=== PATIENT | male | born 1965 | race Caucasian/White ===

== ENCOUNTER 2021-09-30 14:02 | Emergency (ER) | payer OTHER, SELFPAY ==
--- NOTE | ~2021-09-30 | XR_ITS ---
EXAMINATION: XR ankle RT min 3V EXAM DATE: 09/30/2021 14:53 INDICATION: right ankle pain, skiing injury Lateral Pain TECHNIQUE: Right ankle frontal, lateral and oblique projections obtained and reviewed. There is no p rior study for comparison. FINDINGS: The right ankle mortise appears intact. There are no acute fractures or dislocations iden tified. There is no subcutaneous gas. The soft tissue is unremarkable. There are no radiopaque fo reign bodies. IMPRESSION: 1. XR ankle RT min 3V exam without acute osseous findings. Reviewed, dictated and finalized at location A. MASON
--- NOTE | ~2021-09-30 | CT_ITS ---
EXAMINATION: CT brain wo con, CT cervical spine wo con EXAM DATE: 09/30/2021 14:48 INDICATION: Head injury, headache, vomiting. TECHNIQUE: Spiral CT of the head was performed without contrast. Axial, coronal and sagittal images were reviewed. Spiral CT of the cervical spine was performed without contrast. Axial images were rev iewed. Coronal and sagittal reformatted images were also reviewed. The dose-length product (DLP) fo r this examination was 605.33 (accession [id number]), 302.42 (accession [id number]) mGy-cm. The exposure was tailored according to patient size, and iterative reconstruction (ASIR) was used as additional dose reduction technique. Comparison is made to prior examination from 05/03/2017. FINDINGS: HEAD CT: There is no acute intraparenchymal hemorrhage. No evidence of intraparenchymal brain mass l esion. No evidence of acute infarction. There is no mass effect or midline shift. There is no obstru ctive hydrocephalus suspected. There are no extra-axial collections. There are no acute calvarial f ractures. The orbits are unremarkable. Soft tissue is unremarkable. The visualized sinuses and mas toid air cells are well aerated. CERVICAL CT: There is no evidence of acute cervical fracture. The odontoid process is intact. Pre- dens space is normal. Prevertebral soft tissue is normal. There are no soft tissue abnormalities id entified. There is no disc space widening or traumatic vertebral body subluxation suspected. Modera te lower cervical disc disease. Mild cervical arthropathy. A detailed level by level evaluation of s pondylosis can be added as addendum if requested. IMPRESSION: 1. No acute intracranial findings or cervical fracture. Reviewed, dictated and finalized at location A. SANDER IMPRESSION: 1. No acute intracranial findings or cervical fracture.
[2021-09-30 14:15] VITALS: BP 141/88; PULSE 81; RESP 14; TEMP 36.9; O2SAT 100
[2021-09-30] MEDS: ONDANSETRON HCL ODT 4 MG TABLET PO (14:38)
[2021-09-30] MEDS: ACETAMINOPHEN 500 MG TABLET 1000 MG PO (14:38)
--- NOTE | 2021-09-30 15:08 | ED.HEATRA ---
HPI - Head Injury General Chief complaint: Head Injury <Collette Hall PA-C - Last Filed: 09/30/21 15:15> Stated complaint: fall <Collette Hall PA-C - Last Filed: 09/30/21 15:15> Time Seen by Provider: 09/30/21 14:11 <Collette Hall PA-C - Last Filed: 09/30/21 15:15> Source: patient <TWIN Logan Last Filed: 09/30/21 15:15> Mode of arrival: ambulatory <TWIN Logan Last Filed: 09/30/21 15:15> Limitations: no limitations <Collette Hall PA-C - Last Filed: 09/30/21 15:15> History of Present Illness HPI Narrative: This is a 56-year-old male that presents to the emergency department for head injury sustained 2 days ago. Reports he was skiing and lost balance. He struck his head on the ground. He was wearing his helmet. Reports since the injury he has had headaches. Reports last night he was having some vomiting as well. He reports neck pain and right ankle pain after the injury. Patient is not on a blood thinner. Denies vision changes, numbness, or weakness. <Collette Hall PA-C - Last Filed: 09/30/21 15:15> Related Data Allergies/Adverse reactions: Allergies Allergy/AdvReac Type Severity Reaction Status Date / Time No Known Allergies Allergy Verified 08/01/21 15:12 <Collette Hall PA-C - Last Filed: 09/30/21 15:15> Review of Systems Review of Systems: CONSTITUTIONAL: Denies fever EYES: Denies visual changes GASTROINTESTINAL: Reports nausea, vomiting MUSCULOSKELETAL: Reports joint pain, and myalgia. NEUROLOGIC: Reports headache. Denies numbness, or weakness. <TWIN Logan Last Filed: 09/30/21 15:15> All systems reviewed & are unremarkable except as noted in HPI and below <TWIN Logan Last Filed: 09/30/21 15:15> [facility] Past Medical History Medical History: Medical History Chronic headaches Hallux rigidus of left foot Lymphocele after surgical procedure Wears glasses <Collette Hall PA-C - Last Filed: 09/30/21 15:15> Surgical History Surgical History: Surgical History History of lymph node excision <Collette Hall PA-C - Last Filed: 09/30/21 15:15> Family History Family History: Family History Grandparent Diabetes mellitus Father Diabetes mellitus Mother Hypertension, Onset Age: 65 Family history of cardiovascular disease, Onset Age: 65 <Collette Hall PA-C - Last Filed: 09/30/21 15:15> Social History Social History: Social History Smoking status: Never smoker Alcohol intake: current Drinks per week: 2 Gender identity (if verbalized by the patient): Male <TWIN Logan Last Filed: 09/30/21 15:15> Exam Narrative: GENERAL: Well-appearing, well-nourished, and in no acute distress. HEAD: Normocephalic. Superficial abrasions to the left side of the face EYES: PERRLA and EOMI. ENT: Nares clear, no rhinorrhea or epistaxis. Mucous membranes moist. Oropharynx without tonsillar hypertrophy exudate or other lesions. Bilateral TMs pearly demarco non-bulging NECK: Supple. No adenopathy or masses. No midline cervical spine tenderness CHEST: Clear to auscultation. No respiratory distress. No wheezes rales or rhonchi HEART: Regular rate and rhythm. No murmur heard. Normal peripheral pulses. EXTREMITIES: Normal range of motion. No edema or obvious deformity. Strength equal in bilateral upper and lower extremities (5/5) SKIN: Warm, dry, no rash. NEURO: No focal deficits. Alert and oriented x3. Cranial nerves II through XII grossly intact PSYCH: Normal mood and affect <TWIN Logan Last Filed: 09/30/21 15:15> Course HALVER MACHINE OPERATOR/PA Physician Supervision For this patient encounter, I reviewed the HALVER MACHINE OPERATOR or PA documentation, treat
== END 2021-09-30 15:24 | disposition home or self-care (01) ==
PROVIDERS: Emergency Provider Emergency Medicine; PCP Family Medicine
DX: S09.90XA Unspecified injury of head, initial encounter (principal); S16.1XXA Strain of muscle, fascia and tendon at neck level, initial encounter; V00.321A Fall from snow-skis, initial encounter; Y93.23 Activity, snow (alpine) (downhill) skiing, snowboarding, sledding, tobogganing and snow tubing
CPT/HCPCS: 70450; 72125; 73610; 99284; A9270

== ENCOUNTER → 2021-12-05 15:28 | Outpatient (CLI) | payer OTHER, SELFPAY ==
--- NOTE | ~2021-12-05 | XR_ITS ---
EXAMINATION: XR hip RT 2V w AP pelvis INDICATION: Low back TECHNIQUE: AP view the pelvis and two views of the right hip are obtained. COMPARISON: None available FINDINGS: Bone alignment is normal. There is no fracture. Phleboliths are noted in the pelvis. The so ft tissues are otherwise unremarkable. IMPRESSION: 1. No acute osseous abnormality. Reviewed, dictated and finalized at location B.
--- NOTE | ~2021-12-05 | XR_ITS ---
EXAMINATION: XR lumbar spine 2-3V DATE: 12/05/2021 15:58 INDICATION: Low back pain TECHNIQUE: Anteroposterior and lateral views of the lumbar spine, and cone-down lateral view of the l umbosacral junction were obtained. COMPARISON: None. FINDINGS: There is no fracture, dislocation, or subluxation. The vertebral body heights, alignment, a nd intervertebral disc spaces are normal. The paravertebral soft tissues are unremarkable. IMPRESSION: 1. No acute osseous abnormality. Reviewed, dictated and finalized at location B.
== END ==
PROVIDERS: PCP Physician Assistant; Visit Provider Physician Assistant
DX: M54.50 Low back pain, unspecified (principal)
CPT/HCPCS: 72100; 73502

== ENCOUNTER 2022-01-03 06:39 | Outpatient (CLI) | payer OTHER, SELFPAY ==
--- NOTE | ~2022-01-03 | MR_ITS ---
EXAMINATION: MR lumbar spine wo con DATE: 01/03/2022 07:10 INDICATION: Radiculopathy, lumbar region. TECHNIQUE: Magnetic resonance imaging (MRI) of the lumbar spine was performed without intravenous con trast. Sequences included sagittal T2-weighted FSE, sagittal T2-weighted FS FSE, sagittal T1-weighted FSE, and axial T2-weighted FSE. COMPARISON: Lumbar spine radiographs 12/05/2021 FINDINGS: There is 9 degrees dextrocurvature of lumbar spine. Vertebral body heights are normal. Inte rvertebral disc heights are normal. The distal spinal cord signal intensity is normal. The conus medu llaris is at L1. The following disc levels are specifically discussed: L1-L2: The disc does not extend beyond the endplate margin. There is mild bilateral facet joint osteo arthritis. There is no neural foraminal stenosis. There is no central canal stenosis. L2-L3: The disc is mildly bulging. There is severe bilateral facet joint osteoarthritis. There is mil d bilateral neural foraminal stenosis. There is no central canal stenosis. L3-L4: The disc is mildly bulging. There is severe bilateral facet joint osteoarthritis. There is mil d bilateral neural foraminal stenosis. There is no central canal stenosis. L4-L5: The disc is bulging and has an annular fissure. There is mild bilateral facet joint osteoarthr itis. There is mild bilateral neural foraminal stenosis. There is no central canal stenosis. L5-S1: The disc is bulging with superimposed central extrusion. There is mild bilateral facet joint o steoarthritis. There is no neural foraminal stenosis. There is mild central canal stenosis. IMPRESSION: 1. Mild lumbar spondylosis. Reviewed, dictated and finalized at location B. IMPRESSION: 1. Mild lumbar spondylosis.
== END 2022-01-03 06:40 | disposition home or self-care (01) ==
LOC: ANHIMG 06:43
PROVIDERS: PCP Family Medicine; Visit Provider Physician Assistant
DX: M47.26 Other spondylosis with radiculopathy, lumbar region (principal)
CPT/HCPCS: 72148

== ENCOUNTER → 2022-09-07 09:11 | Outpatient (CLI) | payer OTHER, SELFPAY ==
--- NOTE | ~2022-09-07 | MR_ITS ---
MRI of the brain Clinical History: Memory loss Technique: Axial and sagittal T1-weighted images were acquired. These were followed by axial T2-weigh nikki, diffusion weighted, gradient, and FLAIR images. Following intravenous administration of 14 cc Mu ltiHance gadolinium, T1-weighted fat-sat imaging was performed in the axial and coronal planes. Findings: No abnormal signal seen in the brain parenchyma. No acute infarct, intracranial hemorrhage, or mass lesion. Ventricles and subarachnoid spaces are unremarkable. Orbits are unremarkable. Paranasal sinuses and m astoid air cells are clear. Major intracranial flow voids appear intact. Sagittal midline structures are intact. No abnormal postcontrast enhancement identified. IMPRESSION: Unremarkable exam. Reviewed, dictated and finalized at location M. MING POOL ATTENDANT IMPRESSION: Unremarkable exam.
== END ==
PROVIDERS: PCP Family Medicine; Visit Provider Family Medicine
DX: R41.3 Other amnesia (principal)
CPT/HCPCS: 70553; A9577

== ENCOUNTER 2022-12-13 15:30 | Outpatient (RCR) | payer OTHER, SELFPAY ==
--- NOTE | 2022-09-25 15:19 | PTOPEVAL1 ---
Assessment and note entered by Jacquie Horner, PT Evaluation Information Assessment Status Evaluation Diagnosis back pain Onset September 2021 Subjective Information skiing accident Sep 2021; head MRI and vertigo, decreased vision; MRI of back, to pain management, had lumbar injection 2x- had some pain relief; saw surgeon- was not a candidate for surgery, to have PT; back is better than initially after injury; have been active and doing exercises; Reported Pain Level Pain Score Self Report Additional Pain Score Comments pain range of 1-4/10, deep pain into R lateral hip and anterior thigh- like torn muscle to above knee, burning pain; increase pain with lifting 80#--doing home renovations;sit 1-2 hours; sleeping and walking are OK; decrease pain with exercises--bicycle and eccliptical; have not used heat or ice lately--did initially; have new home stim unit prior to accident- was running 8 miles, not done since accident- asked if he could start running- discussed bicycle, swimming, non impact exer and to avoid running at this time; reinforced position change every hour; Assessment PT Clinical Summary Kaye has the diagnosis of back pain, radicular into R LE to above knee. He reports onset in September 2021 with skiing accident. Self assessment Oswestry score of 40% limitation in activity level. Activity level with fitness activity and running, lifting and sitting tolerances are decreased. He reports generally sleeping and walking are OK, and he feels better when he does fitness activity. His MRI report states severe facet joint OA, mild lumbar bulging, with L5-S1 central extrusion. With the evaluation, he has tightness of B hamstrings and anterior hip/quad length on R, and decreased spinal mobility, with spasms. Pain is increased with standing trunk extension, supine R hip IR and ER motions and on the mat- supine SLR and side lying hip abduction cause hip pain. Skilled PT services are indicated for modalities to decrease the radicular pain and spasms, therapeutic exercises to stretch and strengthen trunk and hips, with education for home exercises and posture/body mecha
--- NOTE | 2022-10-09 15:21 | PCPTNOTE ---
Patient did not show up for scheduled appointment this date. Called and spoke to patient's and she stated that he thought his appointment wasn't until Sunday.
--- NOTE | 2022-10-23 16:16 | PTOPPROG ---
Assessment and note entered by Jacquie Horner, PT Evaluation Information Assessment Status Progress Diagnosis back pain Onset September 2021 Subjective Information Kaye reports: stretching is helping overall, but still tight; want to get back to running a 5K, has been about 1 year since ran; at home have ecliptical --using about 34 min and bike; have gym membership; pain range of 0-4/10- in anterior hip/inner groin areas; radicular into medial thigh R to above knee ; R low back and lateral hip sometimes feel there when stretching; report sitting tolerance of 1 & 1/2 to 2 hour tolerance; decrease pain with resting, ibuprofen 800 mg-usually take 1/2 tab at time--PRN, every other day; have home stim unit-- have not opened or tried it yet; Assessment PT Clinical Summary Kaye has received 7 PT sessions. Compared to the initial evaluation: pain rating at the highest remains 4/10, but low rating has decreased to times of NO pain; Oswestry self assessment improved from 40-30% limitation in activity level; reported sitting tolerance is the same; supine R hip ER and SLR and standing trunk extension no longer cause pain; increased flexibility of B hamstrings and R anterior hip/ quad; increase strength of trunk and hips; has been educated on HEP and posture/positioning. The goals were partially achieved. Continue PT treatment. Plan of Care Interventions Electrical Stimulation,Hot Pack/Cold Pack,Manual Therapy,Mechanical Traction,Neuro Re-education, Patient/Caregiver Education,Therapeutic Activities, Therapeutic Exercise,Ultrasound,Other Other Interventions taping PT Services Indicated Yes Treatment Frequency and 1x/wk for 6 weeks Duration These treatments will address the objective and functional deficits as defined above. The patient will be advanced safely and appropriately in order for the patient to progress towards his/her prior level of function. Additional exercises will be introduced and as well as a comprehensive home exercise program upon discharge, if needed, ?to ensure carryover of functional gains achieved in the clinic. This treatment plan has been reviewed and agreement upon by the patient.
--- NOTE | 2022-11-13 15:41 | PCPTNOTE ---
Patient called & cancelled scheduled appointment this date due to having a work meeting.
--- NOTE | 2022-12-04 15:27 | PCPTNOTE ---
pt called and canceled today's reeval due to having to work;
--- NOTE | 2022-12-13 16:18 | PTOPDC ---
Assessment and note entered by Jacquie Horner, PT Evaluation Information Assessment Status Discharge Diagnosis back pain Onset September 2021 Subjective Information Kaye reports: has started running again, have not run for the past year- has been out 3x- 1,2 & 4 miles; stretched out before and after running, had ankle, knee and some back pain; have been doing eccliptical and bicycle for fitness about 30 -40 minutes, without any troubles; Discussed and educated pt to gradually increase his running, monitor back and body pain; alternate bike, running and other fitness, to decrease stress on his body; he voiced understanding of this; Reported Pain Level Pain Score Self Report Additional Pain Score Comments pain range of 0-2/10 in past week; R mid lumbar and lateral hip joint; burning pain in distal anterior quad--cannot relate to any activity-- has not changed; sitting tolerance 1-2 hours; no pain in R lateral hip today, did have some tightness there in the past few weeks, pushed on muscle there and it was sore and tight; take ibuprofen as needed, but not very often; Assessment PT Clinical Summary Kaye has received 12 PT sessions. Compared to the last reevaluation: improved with: pain rating at the worst from 4 to 2/10; no pain with supine R hip motions; self assessment Oswestry from 30% to 16% limitation in activity; strength of trunk and hips; hamstring flexibility with SLR 70' R and L; he has returned to running and 30-40 minutes of bicycle for fitness. Education completed for home exercises and posture The goals were met. Discharge PT services. Plan of Care PT Services Indicated No-- discharge PT Services
== END 2022-12-14 08:43 | disposition home or self-care (01) ==
LOC: ANHPT 15:30
PROVIDERS: PCP Family Medicine; Visit Provider Physician Assistant
DX: M54.9 Dorsalgia, unspecified (principal)
CPT/HCPCS: 97014; 97110; 97112; 97140; 97161; 97530; 99199; G0283

== ENCOUNTER 2023-07-07 04:47 | Emergency (ER) | payer OTHER, SELFPAY ==
[2023-07-07] VITALS (10 sets, daily range): BP systolic 119–130; BP diastolic 70–82; PULSE 52–75; RESP 14–15; TEMP 36.4; O2SAT 100
--- NOTE | ~2023-07-07 | CT_ITS ---
EXAMINATION: CT abdomen pelvis w con DATE: 07/07/2023 06:07 INDICATION: New onset of hematuria TECHNIQUE: Computed tomography (CT) of the abdomen and pelvis was performed with 100 cc Omnipaque 350 intravenous contrast. The dose-length product was 263.33 mGy-cm. Automated exposure control and iter ative reconstruction technique were employed. COMPARISON: None. FINDINGS: Lung bases are unremarkable. Heart size normal. No significant pleural or pericardial effus ion. The liver, spleen, pancreas, adrenal glands and kidneys are unremarkable. Gallbladder is present . Nonobstructive bowel gas pattern. Moderate colonic fecal loading. No abnormal pelvic masses. No sig nificant vascular abnormality. No lymphadenopathy. Mild dextrocurvature of the splenic lumbar spine. No free air. No lymphadenopathy. IMPRESSION: 1. No acute abdominal abnormality. Reviewed, dictated and finalized at location A.
[2023-07-07 05:26] LABS: Basophils Percent Auto 0.8 % (0.2-1.2); Eosinophils Absolute Auto 0.1 K/mm3 (0-0.3); Eosinophils Percent Auto 2.8 % (0-4.4); Hematocrit 41.1 % (42.0-52.0); Hemoglobin 13.8 g/dL (14.0-18.0); Immature Granulocyte Absolute 0.01 K/mm3 (0.00-0.031); Immature Granulocyte Percent A 0.2 % (0-0.5); Lymphocytes Absolute Auto 2.64 K/mm3 (0.9-3.2); Mean Corpuscular HGB Conc 33.6 g/dl (32-36); Mean Corpuscular Hemoglobin 31.1 pg (26-34); Mean Corpuscular Volume 92.6 fl (80-100); Mean Platelet Volume 10.4 fl (7.4-10.4); Monocytes Absolute Auto 0.5 K/mm3 (0.1-0.6); Monocytes Percent Auto 8.9 % (2.6-8.5); Neutrophils Absolute Auto 1.8 K/mm3 (1.3-6.7); Neutrophils Percent Auto 35.3 % (45.5-73.1); Platelet Count Result 153 k/mm3 (150-375); Red Blood Count 4.44 M/mm3 (4.6-6.20); Red Cell Distribution Width 12.2 % (11.5-14.5); White Blood Count 5.1 K/mm3 (4.5-10.0)
[2023-07-07 05:31] LABS: Appearance Urine Clear (Clear); Bilirubin Urine 1+ (Negative); Blood Urine 3+ (Negative); Color Urine Red (Yellow); Glucose Urine UA Negative (Negative); Ketones Urine Negative (Negative); Leukocyte Esterase Ur Negative LEU/UL (Negative); Nitrate Urine Negative (Negative); Protein Urine 3+ mg/dL (Negative); Urobilinogen Urine 0.2 mg/dL (<2.0)
[2023-07-07 05:35] LABS: Bacteria Urine None Seen /hpf; Non Pathogenic Casts 0-2; RBC Urine >100 /hpf (0-2); Squamous Epithelial Cell Urine None seen /hpf (Few); WBC Urine 21-50 /hpf
[2023-07-07 05:36] LABS: Alanine Aminotransferase 19 U/L (6-50); Albumin Level 4.2 g/dL (3.5-5.1); Alkaline Phosphatase 43 U/L (38-126); Anion Gap 7 mmol/L (8-16); Aspartate Amino Transferase 26 U/L (17-59); Bilirubin,Total 0.6 mg/dL (0.2-1.3); Blood Urea Nitrogen 18 mg/dL (9-20); Calcium 8.7 mg/dL (8.4-10.2); Carbon Dioxide 29 mmol/L (22-30); Chloride 102 mmol/L (98-107); Estimated CRCL calculation 87 ml/min; Estimated Glomerular Filt Rate > 60; Glucose 101 mg/dL (65-110); Potassium 3.3 mmol/L (3.4-5.0); Sodium 138 mmol/L (137-145)
[2023-07-07 05:38] LABS: Partial Thromboplastin Time 24.6 SECONDS (22.3-36.8); Prothrombin Time 13.6 Seconds (11.1-14.7)
[2023-07-07 05:39] LABS: Add Urine Microscopic? YES
--- NOTE | 2023-07-07 06:29 | ED.GENADULT ---
HPI - General Adult General Chief complaint: Urogenital-Male Stated complaint: urinary problems; blood in urine Time Seen by Provider: 07/07/23 05:00 History of Present Illness HPI narrative: Patient 57-year-old gentleman who presents emergency department with chief complaint of blood in his urine. Patient reports that he had dark blood in his urine this evening reports no trauma did report that he had intercourse earlier this evening but reports no pain denies dysuria reports that when he urinated it was just dark blood colored urine. Patient denies fever denies other symptomatology reports not on anticoagulant and a platelet therapy Related Data Home Medications Medication Instructions Recorded Confirmed [id number] acid-vit 1 tablet PO DAILY 09/28/22 02/13/23 K-lycop 400 mcg-20 mcg-370 mcg tablet (Men's 50 Plus Multivitamin) Allergies Allergy/AdvReac Type Severity Reaction Status Date / Time sertraline AdvReac anxiety, Uncoded 07/07/23 04:52 tremor Review of Systems Review of Systems: A 10 system review of systems was completed on the patient and is negative except for what is stated in the HPI. Nursing and ancillary documentation was reviewed. [facility] Past Medical History Medical History 1st MTP arthritis Back pain Cervical neck pain with evidence of disc disease Chronic headaches Concussion External thrombosed hemorrhoids Hallux rigidus of left foot Lateral epicondylitis of both elbows Lymphocele after surgical procedure Sleep disorder TMJ disorder involving articular disc abnormality Wears glasses Surgical History Surgical History History of lymph node excision Family History Family History Grandparent Diabetes mellitus Father Diabetes mellitus Malignant neoplasm of prostate Mother Hypertension, Onset Age: 65 Family history of cardiovascular disease, Onset Age: 65 Social History Social History Smoking status: Never smoker Alcohol intake: current Alcohol use details: beer or wine once a month Substance use: never Substance use type: does not use Lack of Transportation: No Lack of Food: Never True Current Housing: I Have Housing Concerned About Future Housing: No Difficulty Paying Gas/Electric Bills: No Difficulty Paying for Meds: No Currently Unemployed: No Education: Master's Degree or Higher Difficulty w/ Childcare or Family Care: No Living arrangements: with family Gender identity (if verbalized by the patient): Male Exam Narrative: GENERAL: Well-appearing, well-nourished, and in no acute distress. HEAD: Normocephalic, atraumatic. EYES: PERRLA and EOMI. ENT: Nares clear, no rhinorrhea or epistaxis. Mucous membranes moist. NECK: Supple. CHEST: Clear to auscultation. No respiratory distress. HEART: Regular rate and rhythm. No murmur heard. Normal peripheral pulses. ABDOMEN: Soft, nontender, nondistended, normal active bowel sounds. : Normal external genitalia, no bruising no signs of trauma EXTREMITIES: Normal range of motion. No edema. SKIN: Warm, dry, no rash. NEURO: No focal deficits. Alert and oriented x3. PSYCH: Normal mood and affect. Course Vital Signs Vital signs: Vital Signs Temperature 36.4 C 07/07/23 04:49 Pulse Rate 68 07/07/23 04:49 Respiratory Rate 15 07/07/23 04:49 Blood Pressure 130/82 07/07/23 04:49 Pulse Oximetry 100 07/07/23 04:49 Oxygen Delivery Room Air 07/07/23 04:49 Temperature 36.4 C 07/07/23 04:49 Pulse Rate 52 L 07/07/23 06:31 Respiratory Rate 14 07/07/23 06:31 Blood Pressure 123/70 07/07/23 06:46 Pulse Oximetry 100 07/07/23 06:46 Oxygen Delivery Room Air 07/07/23 04:49
--- NOTE | 2023-07-07 07:11 | PC.NURSE ---
Report to STONEY Linda
[2023-07-07] MEDS: CEPHALEXIN 500 MG CAPSULE PO (07:35)
== END 2023-07-07 07:35 | disposition home or self-care (01) ==
PROVIDERS: Emergency Provider Emergency Medicine; PCP Family Medicine
DX: N39.0 Urinary tract infection, site not specified (principal); R31.0 Gross hematuria
CPT/HCPCS: 36415; 74177; 80053; 81001; 85025; 85610; 85730; 87086; 99284; A9270; Q9967

== ENCOUNTER 2023-07-25 12:25 | Outpatient (CLI) | payer OTHER, SELFPAY ==
--- NOTE | ~2023-07-25 | CT_ITS ---
CT of the Abdomen and Pelvis: Indication: Hematuria Technique: 2.5 mm axial scans were obtained through the abdomen and pelvis prior to and following in travenous administration of 130 cc of Omnipaque 350. Dose reduction technique was used on this scan b y utilizing automated exposure control and iterative reconstruction technique. The dose-length produc t (DLP) was 668.15 mGy-cm. COMPARISON: 07/07/2023 Findings: Scans through the lung bases are unremarkable. The liver, spleen, pancreas, gallbladder, adrenals and kidneys are within normal limits. No evidence of aortic aneurysm. No lymphadenopathy. No bowel obstruction or bowel wall thickening. There is no evidence to suggest acute appendicitis. Images through the pelvis were performed. Urinary bladder unremarkable. No pelvic mass seen. No ascit es. Impression: No significant abnormalities seen. No etiology for hematuria identified. Reviewed, dictated and finalized at [facility]. LIANCE AND CONTROL ANALYST Impression: No significant abnormalities seen. No etiology for hematuria identified.
== END 2023-07-25 12:26 | disposition home or self-care (01) ==
PROVIDERS: PCP Family Medicine
DX: R31.0 Gross hematuria (principal)
CPT/HCPCS: 74178; Q9967

== ENCOUNTER 2023-08-05 01:57 | Emergency (ER) | payer OTHER, SELFPAY ==
[2023-08-05] VITALS (12 sets, daily range): BP systolic 115–147; BP diastolic 75–90; PULSE 60–71; RESP 16–17; TEMP 36.8; O2SAT 98–100
--- NOTE | 2023-08-05 04:38 | ED.MALEGU ---
HPI - Male Genitourinary General Chief complaint: Urogenital-Male Stated complaint: hematuria Time Seen by Provider: 08/05/23 04:08 Source: patient and family () Limitations: no limitations History of Present Illness HPI Narrative: Patient is a 57-year-old male presents to the emergency department complaining of blood in his urine. Patient states he had intercourse with his today and afterwards went to go urinate and had bright red blood in his urine, did not notice any clots, notes that there was blood throughout the entire stream any urinated a significant amount prompting him to come in for further evaluation. Patient denies dysuria, urinary frequency, urinary urgency, melena, hematochezia, abdominal pain, lightheadedness, shortness of breath, recent injuries, recent illness, history of prostate abnormalities, history of sexual transmitted infections, penile discharge. Patient denies any injuries while having sexual intercourse and notes that it felt good and does not know what his semen appeared like. Patient admits to history is the past approximately 4 weeks ago with the same contacts in which he had sexual intercourse and then proceeded to have bloody urine afterwards and follow-up with the urologist and does not know what the ultimate cause was but it went away however patient has not had sex since that episode 4 weeks ago until tonight. Patient denies fever, back pain, dehydration, nausea, vomiting. Related Data Home Medications Medication Instructions Recorded Confirmed gzlmfymyrvmf-pmn-jwoqx acid-vit 1 tablet PO DAILY 09/28/22 02/13/23 K-lycop 400 mcg-20 mcg-370 mcg tablet (Men's 50 Plus Multivitamin) Allergies Allergy/AdvReac Type Severity Reaction Status Date / Time sertraline AdvReac anxiety, Uncoded 08/05/23 04:08 tremor Review of Systems Review of Systems: A 10 system review of systems was completed on the patient and is negative except for what is stated in the HPI. Nursing and ancillary documentation was reviewed. [facility] Past Medical History Medical History 1st MTP arthritis Back pain Cervical neck pain with evidence of disc disease Chronic headaches Concussion External thrombosed hemorrhoids Hallux rigidus of left foot Lateral epicondylitis of both elbows Lymphocele after surgical procedure Sleep disorder TMJ disorder involving articular disc abnormality Wears glasses Surgical History Surgical History History of lymph node excision Family History Family History Grandparent Diabetes mellitus Father Diabetes mellitus Malignant neoplasm of prostate Mother Hypertension, Onset Age: 65 Family history of cardiovascular disease, Onset Age: 65 Social History Social History Smoking status: Never smoker Alcohol intake: current Alcohol use details: beer or wine once a month Substance use: never Substance use type: does not use Lack of Transportation: No Lack of Food: Never True Current Housing: I Have Housing Concerned About Future Housing: No Difficulty Paying Gas/Electric Bills: No Difficulty Paying for Meds: No Currently Unemployed: No Education: Master's Degree or Higher Difficulty w/ Childcare or Family Care: No Living arrangements: with family Gender identity (if verbalized by the patient): Male Comments At time of signature, I have reviewed and agree with nursing past medical, surgical, social and family history unless otherwise noted. Please see the nursing chart for further information. There is no relevant family history pertinent to the presenting complaint. Exam Narrative: CONST: No acute distress. Well nourished. HENMT: Head is normocephalic and atraumatic. Moist
[2023-08-05 04:47] LABS: Bacteria Urine None Seen /hpf; Need Manual Microscopic Reviewed; Non Pathogenic Casts 0-2; RBC Urine >100 /hpf (0-2); Squamous Epithelial Cell Urine None seen /hpf (Few)
[2023-08-05 04:52] LABS: Appearance Urine Turbid (Clear); Bilirubin Urine Negative (Negative); Blood Urine 3+ (Negative); Color Urine Orange (Yellow); Glucose Urine UA Negative (Negative); Ketones Urine Negative (Negative); Leukocyte Esterase Ur 1+ LEU/UL (Negative); Nitrate Urine Negative (Negative); Protein Urine 2+ mg/dL (Negative); Specific Grav Ur 1.023 (1.001-1.035)
[2023-08-05 04:53] LABS: Add Urine Microscopic? YES
== END 2023-08-05 05:43 | disposition home or self-care (01) ==
LOC: ANHED 04:54
PROVIDERS: Emergency Provider Student in an Organized Health Care Education/Training Program; PCP Family Medicine
DX: R31.0 Gross hematuria (principal)
CPT/HCPCS: 81001; 87086; 99283

== ENCOUNTER 2024-03-22 10:38 | Outpatient (CLI) | payer OTHER, SELFPAY ==
--- NOTE | ~2024-03-22 | MR_ITS ---
EXAMINATION: MR brain/brain stem wo con DATE: 03/22/2024 11:30 INDICATION: Cognitive dysfunction. Worsened finding difficulty. TECHNIQUE: Magnetic resonance imaging (MRI) of the brain and brainstem was performed without intraven ous contrast. COMPARISON: Brain MRI 09/07/2022 FINDINGS: There is no intracranial hemorrhage, acute infarction, or abnormal intracranial mass lesion . The ventricles are normal in size. There is mild mucosal thickening in the ethmoid sinuses. The orb its are normal. There is a trace right mastoid effusion. IMPRESSION: 1. Normal brain. Reviewed, dictated and finalized at location A. IMPRESSION: 1. Normal brain.
== END 2024-03-22 10:39 ==
LOC: MICIMG 10:39
PROVIDERS: PCP Family Medicine; Visit Provider Student in an Organized Health Care Education/Training Program
DX: R41.9 Unspecified symptoms and signs involving cognitive functions and awareness (principal)
CPT/HCPCS: 70551

== ENCOUNTER 2024-05-01 07:04 | Outpatient (CLI) | payer OTHER, SELFPAY ==
[2024-04-25 13:45] VITALS: BMI 23.6
--- NOTE | 2024-04-25 13:45 | PC.NURSE ---
Pre Radiology instructions Report to the outpatient damon gali on date _[id number]_ at time _0700_ for procedure Time: _0900_ YOU MAY BE MONITORED AT HOSPITAL FOR UP TO 4 HOURS AFTER YOUR PROCEDURE. A visitor will be allowed to accompany the patient into the hospital. You and your visitor will be asked to self-screen and do not enter if you have any COVID symptoms. A mask is OPTIONAL within the hospital. Patients are to have no food or drink 6 hours prior to procedure time Driving will be restricted after the procedure, you must have a person to drive you home. Labs will be drawn in preop area and once reviewed, you will be taken to radiology area for procedure. When the procedure is completed, you will be taken to outpatient where you will be monitored for several hours. You may have one visitor in this area. Other than holding anti-coagulants, patient may take other medication(s) as scheduled. Prior to your appointment date patients are instructed to hold anti-coagulants after discussing with ordering provider to stop. If unable to discontinue anti-coagulants please notify radiologist. ? No aspirin or warfarin (Coumadin) for 7 days prior to the procedure. ? No clopidogrel (Plavix), ticagrelor (Brilinta), prasugrel (Effient) or dabigatran (Pradaxa) for 5 days prior to the procedure. ? No rivaroxaban (Xarelto), apixaban (Eliquis), dipyridamole (Aggrenox or Persantine) or cilostazol (Pletal) for 2 days prior to the procedure. Medications to discontinue per physician: Date to take last dose: Please leave all valuables, including medications, at home the day of procedure. The hospital will not accept responsibility for valuables. Wear comfortable, loose fitting clothing.? Follow any additional instructions given to you from ordering provider. Telephone instructions given to __Aleky___and asked if any additional questions and then verbalized understanding. Patient advised to call scheduling provider office or registration scheduling [phone] if any additional questions.
[2024-05-01] VITALS (9 sets, daily range): BP systolic 107–130; BP diastolic 57–76; PULSE 57–67; RESP 16–18; TEMP 36.7; O2SAT 100; BMI 22.0
--- NOTE | ~2024-05-01 | XR_ITS ---
EXAMINATION: XR lumbar puncture diagnostic DATE: 05/01/2024 09:22 INDICATION: Cognitive decline. TECHNIQUE: The procedure including the risks, benefits, and alternatives was discussed with the patie nt. Risks discussed included spinal headache, cerebrospinal fluid leak, bleeding, and infection. The patient understood the risks and agreed to proceed. A timeout was performed to verify the patient' s name, date of , and procedure to be performed. The skin overlying the L2-L3 level was prepped and draped in usual sterile fashion. Subcutaneous 1% lidocaine was used for local anesthesia. A 20 gauge spinal needle was advanced under fluoroscopic guidance. The needle was removed and the entry s ite was cleaned and dressed. There were no immediate complications. Fluoroscopy exposure time was 0. 1 minutes. The total number of images was 1. FINDINGS: Real-time fluoroscopy demonstrates the needle at the L2-L3 level. The opening pressure was 10 cm water (Normal range is variably defined as 6-20 cm water and up to 25 cm water in obese patient s. Pressure >25 cm water is one of the modified Dandy criteria for idiopathic intracranial hypertensi on). 14 mL of clear, colorless fluid was collected in 4 tubes. IMPRESSION: 1. Successful fluoro-guided lumbar puncture. Reviewed, dictated and finalized at location A.
[2024-05-01 07:44] LABS: Mean Platelet Volume 9.7 fl (7.4-10.4); Platelet Count Result 162 k/mm3 (150-375)
[2024-05-01 07:59] LABS: Prothrombin Time 13.6 Seconds (11.1-14.7)
[2024-05-01 09:35] LABS: Glucose CSF 52 mg/dL (40-70); Total Protein CSF 48 mg/dL (12-60)
[2024-05-01 09:49] LABS: Appearance CSF Clear (Clear); CSF source CSF; Color CSF Colorless (Colorless); Nucleated Cell CSF 0 /uL (0-5)
[2024-05-01 09:51] LABS: Neutrophils CSF 0 % (0-6); Red Blood Cell CSF 9 (0-2)
[2024-05-09 08:35] LABS: Reference Lab Test Name Ptau CSF
[2024-05-26 07:40] LABS: Reference Lab Test Name Beta Amy 42/40
== END 2024-05-01 11:36 | disposition home or self-care (01) ==
PROVIDERS: PCP Family Medicine; Referring Provider Student in an Organized Health Care Education/Training Program; Visit Provider Radiology Diagnostic Radiology
PROC: 009U3ZZ Drainage of Spinal Canal, Percutaneous Approach (ICD-10-PCS; CPT 62328; principal; 2024-05-01 09:00)
DX: R41.3 Other amnesia (principal)
CPT/HCPCS: 36415; 62328; 82945; 84157; 85049; 85610; 87070; 89051

== ENCOUNTER 2024-10-28 15:33 | Emergency (ER) | payer OTHER, SELFPAY ==
[2024-10-28 15:48] VITALS: BP 117/75; PULSE 61; RESP 16; TEMP 36; O2SAT 100
--- NOTE | 2024-10-28 15:56 | ED.EYEPROB ---
HPI - Eye Problem General Chief complaint: Eye Problems Stated complaint: LT Eye Irritation Time Seen by Provider: 10/28/24 15:56 Source: patient, RN notes reviewed and old records reviewed Mode of arrival: ambulatory Limitations: no limitations History of Present Illness HPI Narrative: 59-year-old male presents to the [facility] with left eye irritation since yesterday. Patient states that it felt like something was in the medial portion of the eye. States that his gave him some eye drops to use and it did help a little bit but wanted to come in for evaluation. Denies any blurry vision or change in vision. Reports a lot of tearing, no crusting or purulent drainage. Onset (ago): day(s) (1) Treatments Prior to Arrival: other (Eyedrops) Related Data Home Medications ?Medication ?Instructions ?Recorded ?Confirmed ?Last Taken ?Type qrxzevahykbp-bqe-airol acid-vit 1 tablet PO DAILY 09/28/22 10/02/24 Unknown History K-lycop 400 mcg-20 mcg-370 mcg tablet (Men's 50 Plus Multivitamin) Allergies Allergy/AdvReac Type Severity Reaction Status Date / Time sertraline AdvReac Intermediate Anxiety Verified 10/28/24 15:46 Review of Systems Review of Systems: All systems reviewed & are unremarkable except as noted in HPI and below Constitutional: Constitutional: Reports no additional constitutional complaints Eyes: Eyes: Reports as per HPI ENT: Reports system reviewed and no additional complaints, except as documented Cardiovascular: Cardiovascular: Reports no additional cardiovascular complaints, Denies chest pain and Denies dyspnea Respiratory: Respiratory: Reports no additional respiratory complaints, Denies chest congestion, Denies cough and Denies dyspnea Musculoskeletal: Musculoskeletal: Reports no additional musculoskeletal complaints Integumentary/Breasts: Skin/Breast: Reports system reviewed and no additional complaints, except as docu PMFSH Past Medical History Medical History Cognitive impairment Sleep disorder Back pain Postconcussive syndrome Concussion Wears glasses Chronic headaches Hallux rigidus of left foot Lateral epicondylitis of both elbows TMJ disorder involving articular disc abnormality Lymphocele after surgical procedure Cervical neck pain with evidence of disc disease 1st MTP arthritis External thrombosed hemorrhoids Surgical History Surgical History History of lymph node excision Family History Family History Grandparent Diabetes mellitus Father Diabetes mellitus Malignant neoplasm of prostate Mother Hypertension, Onset Age: 65 Family history of cardiovascular disease, Onset Age: 65 Social History Social History Smoking status: Never smoker Alcohol intake: current Alcohol use details: beer or wine once a month Substance use: never Substance use type: does not use Do You Feel Safe in your Home?: Yes Lack of Transportation: No Lack of Food: Never True Current Housing: I Have Housing Concerned About Future Housing: No Difficulty Paying Gas/Electric Bills: No Difficulty Paying for Meds: No Currently Unemployed: No Education: Master's Degree or Higher Difficulty w/ Childcare or Family Care: No Living arrangements: with family Gender identity (if verbalized by the patient): Male Comments At the time of my signature, I reviewed and agree with the nursing past medical, surgical, social, and family history. There is no relevant family history pertinent to the patient complaint. Exam Const: General: cooperative, healthy appearing, comfortable, no acute distress, well developed, alert and well nourished Nutritional Appearance: well nourished Orientation/consciousness: patient oriented x3 Limitations: no limitations HENMT: Head: normal to inspection Eyes: General: appearance normal, both eyes and all related structures Alignment and Position: alignment normal Eyelids: eyelids normal Cornea: corneas abnormal on the left fluorescein used and abrasion and fluorescein used Eyes/upper lids images:  1. Fluorescein uptake, abrasion noted no foreign bodies, flipped upper lid. Neck: Neck: normal visual inspection, full ROM, no lymphadenopathy and no meningeal signs Chest: Chest palpation & inspection: normal inspection of the chest Resp: Effort & Inspection: normal respiratory effort and able to speak in complete sentences Cardio: Rate: regular rate Skin: General skin exam: normal color and no rashes or lesions noted Neuro: General: patient oriented x3, gait normal, moves all extremities and no meningeal signs Cognition (Neuro): normal cognition Speech: normal speech Gait exam (Neuro): Normal gait present Extrem: General: normal to inspection, full ROM, capillary refill normal and normal gait Psych: Appearance: grossly normal and well kempt Mental Status: mental status grossly normal Speech and movement: Normal speech and movement present and Clear speech present Affect: normal affect Attitude: cooperative Course Course Level of Care: Express Care Visit Vital Signs Vital signs: Vital Signs Temperature 96.8 F L 10/28/24 15:48 Pulse Rate 61 10/28/24 15:48 Respiratory Rate 16 10/28/24 15:48 Blood Pressure 117/75 10/28/24 15:48 Pulse Oximetry 100 10/28/24 15:48 Oxygen Delivery Room Air 10/28/24 15:48 Temperature 96.8 F L 10/28/24 15:48 Pulse Rate 61 10/28/24 15:48 Respiratory Rate 16 10/28/24 15:48 Blood Pressure 117/75 10/28/24 15:48 Pulse Oximetry 100 10/28/24 15:48 Oxygen Delivery Room Air 10/28/24 15:48 Reviewed MDM - Eye Problem MDM Narrative Medical decision making narrative: Patient sitting in exam room. Nontoxic, vitals stable. Patient in no acute distress. Patient presents with concerns of eye irritation. Exam done through Wood's lamp with fluorescein and tetracaine. Abrasion is noted to the cornea and medial aspect left eye. Patient encouraged to follow-up with ophthalmology. Eyedrops prescribed. Patient appropriate for outpatient treatment and follow-up Discharge instructions reviewed with patient, as well as provided in writing per nursing staff. The instructions also include specific and strict return/GO TO THE ER as well as f/u information. All questions have been answered, and the patient deny any further questions with discharge and discharge plan. Some parts of this dictation were generated by voice recognition software and may contain typographical and/or grammatical inaccuracies. Differential Diagnosis Differential diagnosis: Likely corneal abrasion and corneal ulcer Critical Care Time Critical Care Time Critical Care Time: No Discharge Plan Discharge Clinical Impression: Vaccine for lvjsmuorvx-bhaieti-lwvgdslun, combined Corneal abrasion Qualifiers: Encounter type: initial encounter Laterality: left Qualified Code(s): S05.02XA - Injury of conjunctiva and corneal abrasion without foreign body, left eye, initial encounter Patient Disposition: Home, Self-Care Condition: Stable Instructions: Antibiotic Form, Corneal Abrasion (ED) Additional Instructions: Today it was seen that you have a corneal abrasion. Use the eyedrops as prescribed. Is recommended you follow-up with an eye doctor. You should follow-up with an eye doctor within the next 72 hours Suzan: Erasmo- [phone] [facility] [phone] [place] [phone] Tamara: [facility] [phone] or [phone] [facility] [phone] [facility] [phone] [facility] [phone] [facility]- [phone] Patient Language: Luxembourgish Prescriptions: New ciprofloxacin HCl 0.3 % drops See Rx Instructions EACH EYE .COMPLEX Qty: 2.5 0RF Rx Instructions: put 1 drop in left eye every 2hr up to 8 times/day x2days; then 4 times/day x5days No Action primidone [Mysoline] 50 mg tablet 50 mg PO QHS Qty: 60 12RF sildenafil 100 mg tablet 100 mg PO DAILY PRN (Reason: sexual activity) Qty: 14 0RF Rx Instructions: administer 30 minutes to 4 hours before activity Men's 50 Plus Multivitamin 400-20-370 mcg tablet 1 tablet PO DAILY ibuprofen 800 mg tablet 800 mg PO TID PRN (Reason: Pain) Qty: 90 2RF clonazepam 1 mg tablet 1 mg PO QHS PRN (Reason: tremors) Qty: 90 3RF amitriptyline 25 mg tablet See Rx Instructions .ROUTE .COMPLEX Qty: 90 1RF Dose Instruction: TAKE ONE TABLET BY MOUTH DAILY Rx Instructions: TAKE ONE TABLET BY MOUTH DAILY propranolol 10 mg tablet 10 mg PO TID Qty: 90 1RF Follow-up/Referrals: Ban Daniel MD [Primary Care Provider] - 2 Weeks ([facility] follow-up) Stand Alone Forms: Work/School Release IP Time of Disposition: 16:12
--- OUTSIDE RECORDS SUMMARY | 2024-10-28 16:12 | XMS_ITS | Clinical Summary ---
Author Organization [facility] Address [address] [place] [address] Phone Care Team Providers Care Color Weigher Name Role Phone Tadeo Ramos MD Primary Care Provider [phone] Allergies No known active allergies Medications clonazePAM (KlonoPIN) 1 mg tablet Take 1 mg by mouth daily at bedtime. Active amitriptyline (ELAVIL) 25 mg tablet Take 25 mg by mouth daily at bedtime. Active ibuprofen (MOTRIN) 400 mg tablet Take 400 mg by mouth daily. Active Active Problems No known active problems Family History Medical History Relation Name Comments Other Brother smoker Cancer Father Hypertension Mother Other Mother smoker Lung Cancer Other aunt Other Other aunt smoker Brain Aneurysm Sister Other Sister smoker Relation Name Status Comments Brother Father Mother Other aunt Alive Sister Social History Tobacco Use Types Packs/Day Years Used Date Smoking Tobacco: Never Smokeless Tobacco: Never Alcohol Use Standard Drinks/Week Comments Yes 0 (1 standard drink = 0.6 oz pur e alcohol) Sex and Gender Information Value Date Recorded Sex Assigned at Not on file Legal Sex Male 1:20 PM CDT Gender Identity Not on file Sexual Orientation Not on file 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 Not on file Not on file Not on file Last Filed Vital Signs Vital Sign Reading Time Taken Comments Blood Pressure 116/77 02/14/2022 11:42 AM CDT Pulse 69 02/14/2022 11:42 AM CDT Temperature 37 C (98.6 F) 02/14/2022 11:42 AM CDT Respiratory Rate - - Oxygen Saturation - - Inhaled Oxygen Concentration - - Weight 69.4 kg (153 lb) 02/14/2022 11:42 AM CDT Height 174.5 cm (5' 8.7 ) 02/14/2022 11:42 AM CD T Body Mass Index 22.79 02/14/2022 11:42 AM CDT Plan of Treatment Health Maintenance Due Date Last Done Comments DTAP/TDAP/TD VACCINES (1 - Tdap) 1985 HEPATITIS B VACCINES (1 of 3 - 19+ 3-dose series) 1985 COLORECTAL SCREENING 2011 Colorectal Cancer Screening 2011 FIT-DNA Q 3 years 2011 FIT/FOBT Q 1 year 2011 Flex Sig/CT Colonography Q 5 years 2011 ZOSTER VACCINE (1 of 2) 2016 INFLUENZA VACCINE (#1) 2024 PNEUMOCOCCAL VACCINE 0-64 YEARS Aged Out No longer eligible based on patient's age to complete this topic Insurance [employer] PPO [id number] Care Teams Color Weigher Relationship Specialty Start Date End Date Tadeo Ramos MD [address] [place] [address] PCP - General Family Practice 01/13/22
--- OUTSIDE RECORDS SUMMARY | 2024-10-28 16:12 | XMS_ITS | Clinical Summary ---
Author Organization [facility] Address [address] [place] [address] Care Team Providers Care Grip Name Role Phone Tadeo Segovia MD Primary Care Provider [phone] Source Comments [facility],non-owned Affiliates and Associated Physician Practices is amultiple site organization consisting of ambulatory clinics and hospital sitesin [place], [place] and [place]. This disclosure is being madepursuant to the Care Everywhere program and may not contain all information available regarding this patient. 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 Pulse - - Temperature 37.1 C (98.8 F) 07/23/2013 9:49 AM TEARER PRESS CLIPPING Respiratory Rate - - Oxygen Saturation - - Inhaled Oxygen Concentration - - Weight 70.3 kg (155 lb) 07/23/2013 9:49 AM TEARER PRESS CLIPPING Height 172.7 cm (5' 8 ) 07/23/2013 9:49 AM TEARER PRESS CLIPPING Body Mass Index 23.57 07/23/2013 9:49 AM TEARER PRESS CLIPPING Plan of Treatment Health Maintenance Due Date Last Done Comments COLOGUARD (AGES 45-75) - COL ON CA SCREENING 1966 COLON MONITORING 1966 COLONOSCOPY - COLON CA SCREENING 1966 CT COLONOGRAPHY - COLON CA SCREENING 1966 Colorectal Cancer Screening 1966 FIT - COLON CA SCREENING 1966 FLEX SIG - COLON CA SCREENING 1966 LIPID TESTING 1966 HIV SCREENING 1981 HEPATITIS C SCREENING 09/23/1984 DTAP/TDAP/TD VACCINES (1 - Tdap) 1985 HEPATITIS B VACCINE (1 of 3 - 19+ 3-dose series) 1985 PNEUMOCOCCAL VACCINE 50+ (1 of 1 - PCV) 2016 ZOSTER VACCINE (1 of 2) 2016 COVID-19 VACCINE (1 - 2023-2 5 season) 2024 INFLUENZA VACCINE (#1) 2024 DEPRESSION SCREENING 09/17/2024 HIB VACCINE Aged Out No longer eligi ble based on patient's age to complete this topic HPV VACCINE Aged Out No longer eligi ble based on patient's age to complete this topic MENINGOCOCCAL (Group B) VACCINE Aged Out No longer eligible based on patient's age to complete this topic MENINGOCOCCAL VACCINE Aged Out No rafal jasmin eligible based on patient's age to complete this topic PNEUMOCOCCAL VACCINE Aged Out No long er eligible based on patient's age to complete this topic Care Teams Grip Relationship Specialty Start Date End Date Tadeo Segovia MD [address] [place] [address] PCP - General 06/11/13
--- OUTSIDE RECORDS SUMMARY | 2024-10-28 16:12 | XMS_ITS | Patient Health Summary ---
Author Organization [facility] Address [address] [place] [place] [address] Care Team Providers Care Condenser Tester Name Role Phone Tadeo Segovia MD Primary Care Provider [phone] [facility],non-owned Affiliates and Associated Physician Practices is amultiple site organization consisting of ambulatory clinics and hospital sitesin [place], [place], [place] and [place]. This disclosure is being madepursuant to the Care Everywhere program and may not contain all information available regarding this patient. 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
--- OUTSIDE RECORDS SUMMARY | 2024-10-28 16:12 | XMS_ITS | Referral Summary ---
Author Organization [facility] Address [address] [place] [address] Care Team Providers Care Insight Leader Name Role Phone Luther Ch Primary Care Provider + Allergies No known active allergies Medications ibuprofen (ADVIL,MOTRIN) 400 mg tablet Take 400 mg by mouth daily Active clonazePAM (KlonoPIN) 1 mg tablet 02/23/2022 Active amitriptyline (ELAVIL) 50 mg tabletIndication s:brain concussion. memory loss. 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 Gender Identity Not on file Sexual Orientation Not on file Last Filed Vital Signs Vital Sign Reading Time Taken Comments Blood Pressure 115/68 03/17/2022 7:53 AM CDT Pulse 53 03/17/2022 7:53 AM CDT Temperature - - Respiratory Rate - - Oxygen Saturation - - Inhaled Oxygen Concentration - - Weight 69.1 kg (152 lb 6.4 oz) 03/17/2022 7:53 A M CDT Height 172.7 cm (5' 8 ) 03/17/2022 7:53 AM CDT Body Mass Index 23.17 03/17/2022 7:53 AM CDT Plan of Treatment Not on file Insurance [facility] Care Teams Insight Leader Relationship Specialty Start Date End Date Luther Ch PA [address] [place], [facility] PCP - General Physician Home Care Consultant 02/09/22
--- OUTSIDE RECORDS SUMMARY | 2024-10-28 16:12 | XMS_ITS | Continuity of Care Document ---
Author Name [facility] Organization [facility] Care Team Providers Care Planograph Operator Name Role Phone [facility] Unavailable Unavailable Allergies, Adverse Reactions, Alerts Combined list of allergies from Department of Defense and Veterans Affairs facilities. It does not include entries that were removed or entered in error. Substance Category Reaction Severity Reaction type Status Date Reported Comments Source No Known Allergies Drug allergy (disorder) active 12/14/2023 [facility] Medical Group Salbador BOSS ([facility]) Social History Combined list of available smoking, tobacco, and other social history from Department of Defense and Veterans Affairs facilities. Social History Type Response Date Comment Sourc e This section is an empty social history section. DoD
--- OUTSIDE RECORDS SUMMARY | 2024-10-28 16:12 | XMS_ITS | Clinical Summary ---
Author Organization [facility] B Address [address] [place] [address] Care Team Providers Care Key Account Director Name Role Phone Luther Ch Primary Care [...] of intervertebral disc of cervical region 04/04/2012 Medical History Medical History Date Comments Migraine Family History Medical History Relation Name Comments Arthritis Father Family history of arthritis - (Added by TW Conv) Cancer Father Diabetes Father Family history of diabetes mellitus - (Added by TW Conv) Hypertension Father Family history of hypertension - (Added by TW Conv) Stroke Father Family history of cerebrovascular accident - (Added by TW Conv) Hypertension Mother Family history of hypertension - (Added by TW Conv) Stroke Mother Family history of cerebrovascular accident - (Added by TW Conv) Relation Name Status Comments Father Mother Social History Tobacco Use Types Packs/Day Years Used Date Smoking Tobacco: Never Personal Safety Answer Date Recorded Getting School Help Needed Not on file 11/26 Sex and Gender Information Value Date Recorded Sex Assigned at Not on file 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 Gender Identity Not on file Sexual Orientation Not on file Obstetrics History Last Filed Vital Signs Vital Sign Reading [...] 03/17/2022 7:53 AM CDT Plan of Treatment Health Maintenance Due Date Last Done Comments Colon Cancer Screening-Colonoscopy 1966 Depression Screening 1966 Hepatitis C Screening 1966 Prostate Cancer Screening-PSA 1966 DTaP/Tdap/Td Vaccine (1 - Tdap) 1977 Hepatitis B Screening 1984 Regular Well Visit/Exam 18-64 1984 Zoster Vaccine (1 of 2) 2016 Covid-19 Vaccine ( season) 2024 09/08/2021, 01/06/2021, 12/16/2020 Influenza Vaccine (#1) 2024 , 07/12/2020, 09/07/2014, Additional history exists Pneumococcal vaccine <65 Aged Out No longer eligible based on patient's age to complete this topic Insurance [facility] OPTIONS PPO R [facility] Care Teams Key Account Director Relationship Specialty Start Date End Date Luther Ch PA [address] [place] [address] PCP - General Physician Washing Machine Loader And Puller 02/09/22
--- OUTSIDE RECORDS SUMMARY | 2024-10-28 16:12 | XMS_ITS | Referral Summary ---
Author Organization [facility] [employer] Address [address] [place] [address] Care Team Providers Care Radio Station Audio Engineer Name Role Phone Tadeo Segovia MD Primary Care Provider [phone] Source Comments [facility] [employer],non-owned Affiliates and Associated Physician Practices is amultiple site organization consisting of ambulatory clinics and hospital sitesin [place], [place], [place] and [place]. This disclosure is being madepursuant to the Care Everywhere program and may not contain all information available regarding this patient. Last updated 18.[facility] [employer] Active Problems Problem Noted Date Diagnosed Date [...] Comments Blood Pressure 110/70 07/23/2013 9:49 AM LUGGAGE REPAIRER Pulse - - Temperature 37.1 C (98.8 F) 07/23/2013 9:49 AM LUGGAGE REPAIRER Respiratory Rate - - Oxygen Saturation - - Inhaled Oxygen Concentration - - Weight 70.3 kg (155 lb) 07/23/2013 9:49 AM LUGGAGE REPAIRER Height 172.7 cm (5' 8 ) 07/23/2013 9:49 AM LUGGAGE REPAIRER Body Mass Index 23.57 07/23/2013 9:49 AM LUGGAGE REPAIRER Plan of Treatment Not on file Care Teams Radio Station Audio Engineer Relationship Specialty Start Date End Date Tadeo Segovia MD [address] [place] [address] PCP - General 06/11/13
[2024-10-28] MEDS: TETANUS,DIPHTHERIA,AC PERTUSSIS ADULT (0.5 ML) BOOSTRIX IM (16:14)
== END 2024-10-28 16:17 | disposition home or self-care (01) ==
PROVIDERS: Emergency Provider Nurse Practitioner; PCP Family Medicine
DX: S05.02XA Injury of conjunctiva and corneal abrasion without foreign body, left eye, initial encounter (principal); X58.XXXA Exposure to other specified factors, initial encounter; Z23 Encounter for immunization
CPT/HCPCS: 90471; 90715; 99213; A9270; G0463

== ENCOUNTER 2024-11-06 12:26 | Emergency (ER) | payer OTHER, SELFPAY ==
[2024-11-06] VITALS (11 sets, daily range): BP systolic 76–134; BP diastolic 45–84; PULSE 48–68; RESP 14–17; TEMP 36.2–36.6; O2SAT 98–100
--- NOTE | ~2024-11-06 | CT_ITS ---
Non-contrast Head CT History: Headache COMPARISON: 09/30/2021 Technique: Axial non-contrast imaging of the brain was performed. Dose reduction technique was used on this scan by utilizing automated exposure control and iterative reconstruction technique. The dose -length product (DLP) was 605.33 mGy-cm. Findings: There is no evidence of intracranial hemorrhage, mass lesion, or acute infarct. Brain par enchyma appears normal. The ventricles and subarachnoid spaces are normal in size. The calvarium ap pears normal. The visualized paranasal sinuses and mastoid air cells are clear. Impression: No significant abnormality seen. Reviewed, dictated and finalized at [facility]. UNICATIONS MANAGER Impression: No significant abnormality seen.
--- NOTE | ~2024-11-06 | CT_ITS ---
EXAMINATION: CTA BRAIN/CAROTID DATE: 11/06/2024 18:09 INDICATION: Anisocoria TECHNIQUE: Computed tomographic angiography (CTA) of the head and neck was performed with 100 mL Omni paque-350 intravenous contrast. Multiplanar reconstructions and maximum intensity projection 3D-recon structions of the carotid arteries and of the intracranial arteries were created by the technologist on a separate workstation. Automated exposure control and iterative reconstruction technique were emp loyed.The dose-length product was 1088.00 mGy-cm. COMPARISON: None. FINDINGS: Carotid arteries: Thoracic aorta is normal in caliber with no hemodynamically significant stenosis or dissection. There is no evident atherosclerotic plaque with 0% stenosis of the right and left carotid bulbs relative t o normal distal artery lumen diameter (NASCET criteria). The left vertebral artery is dominant. Likel y benign multinodular goiter with largest nodule measuring 1 cm in the right thyroid lobe. Several si aloliths in the right parotid gland. Mild biapical pleural-parenchymal scarring. Moderate to severe l ower cervical spondylosis. Intracranial arteries The diminutive right vertebral artery terminates at the right posterior inferior cerebellar artery. T he dominant left vertebral artery is the sole supply to the basilar artery. There is no hemodynamical ly significant stenosis in the vertebral, basilar and internal carotid arteries. There are no aneurys ms identified. Both A1 and in the left P1 segments are patent. The right posterior cerebral artery s upplied by the right internal carotid artery via a patent right posterior communicating artery. Cereb ral arterial arborization appears symmetric. No abnormally enhancing brain lesions identified. IMPRESSION: 1. No atherosclerotic plaque with 0% stenosis of the right and left carotid bulbs relative to normal distal artery lumen diameter (NASCET criteria). 2. Normal anatomic variations the cerebral vascular supply as detailed above with no hematoma signifi cant stenosis, thrombosis or aneurysm. Reviewed, dictated and finalized at location A. TH ADMINISTRATION TEACHER IMPRESSION: 1. No atherosclerotic plaque with 0% stenosis of the right and left carotid bul bs relative to normal distal artery lumen diameter (NASCET criteria). 2. Normal anatomic variations the cerebral vascular supply as detailed above wi th no hematoma significant stenosis, thrombosis or aneurysm.
--- OUTSIDE RECORDS SUMMARY | 2024-11-06 12:29 | XMS_ITS | Referral Summary ---
Author Organization [facility] [employer] Address [address] [place] [address] Care Team Providers Care Environmental Health And Safety Manager Name Role Phone Tadeo Segovia MD Primary Care Provider [phone] Source Comments [facility] [employer],non-owned Affiliates and Associated Physician Practices is amultiple site organization consisting of ambulatory clinics and hospital sitesin [place], [place], [place] and [place]. This disclosure is being madepursuant to the Care Everywhere program and may not contain all information available regarding this patient. Last updated 18.[facility] [employer] Active Problems Problem Noted Date Diagnosed Date [...] Comments Blood Pressure 110/70 07/23/2013 9:49 AM LIBERAL ARTS DEAN Pulse - - Temperature 37.1 C (98.8 F) 07/23/2013 9:49 AM LIBERAL ARTS DEAN Respiratory Rate - - Oxygen Saturation - - Inhaled Oxygen Concentration - - Weight 70.3 kg (155 lb) 07/23/2013 9:49 AM LIBERAL ARTS DEAN Height 172.7 cm (5' 8 ) 07/23/2013 9:49 AM LIBERAL ARTS DEAN Body Mass Index 23.57 07/23/2013 9:49 AM LIBERAL ARTS DEAN Plan of Treatment Not on file Care Teams Environmental Health And Safety Manager Relationship Specialty Start Date End Date Tadeo Segovia MD [address] [place] [address] PCP - General 06/11/13
--- OUTSIDE RECORDS SUMMARY | 2024-11-06 12:30 | XMS_ITS | Clinical Summary ---
Author Organization [facility] [employer] Address [address] [place] [address] Care Team Providers Care Director Supply Name Role Phone Tadeo Segovia MD Primary Care Provider [phone] Source Comments [facility] [employer],non-owned Affiliates and Associated Physician Practices is amultiple site organization consisting of ambulatory clinics and hospital sitesin [place], [place], [place] and [place]. This disclosure is being madepursuant to the Care Everywhere program and may not contain all information available regarding this patient. Last updated 18.[facility] [employer] Active Problems Problem Noted Date Diagnosed Date [...] Comments Blood Pressure 110/70 07/23/2013 9:49 AM REFINERY OPERATOR REFORMING UNIT Pulse - - Temperature 37.1 C (98.8 F) 07/23/2013 9:49 AM REFINERY OPERATOR REFORMING UNIT Respiratory Rate - - Oxygen Saturation - - Inhaled Oxygen Concentration - - Weight 70.3 kg (155 lb) 07/23/2013 9:49 AM REFINERY OPERATOR REFORMING UNIT Height 172.7 cm (5' 8 ) 07/23/2013 9:49 AM REFINERY OPERATOR REFORMING UNIT Body Mass Index 23.57 07/23/2013 9:49 AM REFINERY OPERATOR REFORMING UNIT Plan of Treatment Health Maintenance Due Date [...] age to complete this topic Care Teams Director Supply Relationship Specialty Start Date End Date Tadeo Segovia MD [address] [place] [address] PCP - General 06/11/13
--- OUTSIDE RECORDS SUMMARY | 2024-11-06 12:30 | XMS_ITS | Clinical Summary ---
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
--- OUTSIDE RECORDS SUMMARY | 2024-11-06 12:30 | XMS_ITS | Referral Summary ---
Author Organization [facility] Address [address] [place] [address] Care Team Providers Care Solar Sales Estimator Name Role Phone Luther Ch Primary Care [...] on file Legal Sex Male 3:28 AM BOWLING ALLEY MANAGER Gender Identity Not on file Sexual Orientation [...] Plan of Treatment Not on file Insurance [facility] H[facility]/PPO Address: [address] [address] [place] [address] [facility] H[facility]/PPO Address: [address] [address] [place] [address] Care Teams Solar Sales Estimator Relationship Specialty Start Date End Date Luther Ch PA [address] [place], [facility]34 PCP - General Physician Laboratory Worker 02/09/22
--- OUTSIDE RECORDS SUMMARY | 2024-11-06 12:30 | XMS_ITS | Continuity of Care Document ---
Author Name [facility] Organization [facility] Care Team Providers Care Resident Inspector Name Role Phone [facility] Unavailable Unavailable Allergies, Adverse Reactions, Alerts Combined list of allergies from Department of Defense and Veterans Affairs facilities. It does not include entries that were removed or entered in error. Substance Category Reaction Severity Reaction type Status Date Reported Comments Source No Known Allergies Drug allergy (disorder) active 12/14/2023 [facility] Medical Group Salbador BOSS ([facility] Social History Combined list of available smoking, tobacco, and other social history from Department of Defense and Veterans Affairs facilities. Social History Type Response Date Comment Sourc e This section is an empty social history section. DoD
--- OUTSIDE RECORDS SUMMARY | 2024-11-06 12:31 | XMS_ITS | Clinical Summary ---
Author Organization [facility] B Address [address] [place] [address] Care Team Providers Care Fixture Builder Name Role Phone Luther Ch Primary Care [...] on file Legal Sex Male 3:28 AM OPEN HEARTH WORKER Gender Identity Not on file Sexual Orientation [...] patient's age to complete this topic Insurance [facility] [place] [address] R [facility] Care Teams Fixture Builder Relationship Specialty Start Date End Date Luther Ch PA [address] [place] [address] PCP - General Physician Claim Professional 02/09/22
--- OUTSIDE RECORDS SUMMARY | 2024-11-06 12:31 | XMS_ITS | Continuity of Care Document ---
Author Organization [facility] Address [address] [place] [address] Exec utive [facility] [address] [place] [address] Phone Care Team Providers Care Time Clock Mechanic Name Role Phone Moe Gray Unavailable Unavailable Advance Directives Directive Yes / No Effective Date File Name No Information Encounters Encounter Description Practice Location Reason(s) For Visit Diagnoses Date Provider Providers Copied on Encounter [facility], [address] [place] [address] [address], [place], [place], [id number], [place] tel:[phone] [facility] No Information 3 Marina Rosa. [address] [place], [place] [address]ate [place] , [facility] [address], [place], [place], [facility], [place]. tel:[phone] Referring Provider: [facility] Marino Nguyen [place] [address], [place], [place], [facility]. tel:[phone] Family History Family Member Type Diagnosis Age At Onset No Information Payers Payer name Insurance type Covered green party ID Authoriza tion(s) No Information Social History Type Description Quantity Date Captured Comments Sex Male Smoking Status No Information Chief Complaint And Reason For Visit No Information Reason For Referral Reason For Referral No Information History Of Present Illness Encounter Date Complaint History Of Prese nt Illness No Information Functional Status Date Functional Assessmen t No Information Instructions Date Instruction Additional Infor mation No Information Assessments Type Assessment Date No Information Patient Care Teams Name Effective Dates (start - stop) Status Members No Information
--- OUTSIDE RECORDS SUMMARY | 2024-11-06 12:31 | XMS_ITS | Patient Health Summary ---
Author Organization [facility] [employer] Address [address] [place] [address] Care Team Providers Care Housing Court Judge Name Role Phone Tadeo Segovia MD Primary Care Provider [phone] Note from [facility],non-owned Affiliates and Associated Physician Practices is amultiple site organization consisting of ambulatory clinics and hospital sitesin [place], [place], [place] and [place]. This disclosure is being madepursuant to the Care Everywhere program and may not contain all information available regarding this patient. Last updated 18.[facility] [employer] Active Problems Problem Noted Date Diagnosed Date [...] Comments Blood Pressure 110/70 07/23/2013 9:49 AM PAIN MANAGEMENT NURSE Pulse - - Temperature 37.1 C (98.8 F) 07/23/2013 9:49 AM PAIN MANAGEMENT NURSE Respiratory Rate - - Oxygen Saturation - - Inhaled Oxygen Concentration - - Weight 70.3 kg (155 lb) 07/23/2013 9:49 AM PAIN MANAGEMENT NURSE Height 172.7 cm (5' 8 ) 07/23/2013 9:49 AM PAIN MANAGEMENT NURSE Body Mass Index 23.57 07/23/2013 9:49 AM PAIN MANAGEMENT NURSE Care Teams Housing Court Judge Relationship Specialty Start Date End Date Tadeo Segovia MD [address] [place] [address] PCP - General 06/11/13
--- NOTE | 2024-11-06 13:27 | ED_ITS ---
HPI - Neuro Symptoms/Deficit General Chief Complaint: Neuro Symptoms/Deficit Stated Complaint: AMS, headache, shaky Time Seen by Provider: 11/06/24 13:27 Focused HPI: This is a 59 year old male that presents to the ER for headache. Ongoing since last night. Reports he took a Tylenol last night with a little improvement. Reports when he woke up this morning the headache was present again, worsening since this morning. He has not taken anything for headache yet today. Reports some chills and generalized weakness. Reports he sees Dr. Villarreal for essential tremor. He does experience headaches, but this seemed more persistent. A nurse at his work noted his pupils were unequal. GENERAL: Well-appearing, well-nourished, and in no acute distress. HEAD: Normocephalic, atraumatic. CHEST: Clear to auscultation. ?No respiratory distress. HEART: Regular rate and rhythm.? NEURO: ?Alert and oriented x3. Patient screened in triage and initial orders placed.? ?Additional care and disposition to be based upon?diagnostic testing and treatment. Related Data Home Medications ?Medication ?Instructions ?Recorded ?Confirmed ?Last Taken ?Type cjkewguptazh-jtb-qvsjy acid-vit 1 tablet PO DAILY 09/28/22 10/02/24 Unknown History K-lycop 400 mcg-20 mcg-370 mcg tablet (Men's 50 Plus Multivitamin) Allergies Allergy/AdvReac Type Severity Reaction Status Date / Time sertraline AdvReac Intermediate Anxiety Verified 11/06/24 12:37 PMFSH Past Medical History Medical History Cognitive impairment Sleep disorder Back pain Postconcussive syndrome Concussion Wears glasses Chronic headaches Hallux rigidus of left foot Lateral epicondylitis of both elbows TMJ disorder involving articular disc abnormality Lymphocele after surgical procedure Cervical neck pain with evidence of disc disease 1st MTP arthritis External thrombosed hemorrhoids Surgical History Surgical History History of lymph node excision Family History Family History Grandparent Diabetes mellitus Father Diabetes mellitus Malignant neoplasm of prostate Mother Hypertension, Onset Age: 65 Family history of cardiovascular disease, Onset Age: 65 Social History Social History Smoking status: Never smoker Alcohol intake: current Alcohol use details: beer or wine once a month Substance use: never Substance use type: does not use Do You Feel Safe in your Home?: Yes Lack of Transportation: No Lack of Food: Never True Current Housing: I Have Housing Concerned About Future Housing: No Difficulty Paying Gas/Electric Bills: No Difficulty Paying for Meds: No Currently Unemployed: No Education: Master's Degree or Higher Difficulty w/ Childcare or Family Care: No Living arrangements: with family Gender identity (if verbalized by the patient): Male Course Vital Signs Vital signs: Vital Signs Temperature 97.2 F L 11/06/24 12:30 Pulse Rate 61 11/06/24 12:30 Respiratory Rate 17 11/06/24 12:30 Blood Pressure 130/80 11/06/24 12:30 Pulse Oximetry 100 11/06/24 12:30 Oxygen Delivery Room Air 11/06/24 12:30 Temperature 97.2 F L 11/06/24 12:30 Pulse Rate 61 11/06/24 12:30 Respiratory Rate 17 11/06/24 12:30 Blood Pressure 130/80 11/06/24 12:30 Pulse Oximetry 100 11/06/24 12:30 Oxygen Delivery Room Air 11/06/24 12:30 Discharge Plan Discharge Patient Language: Japanese Prescriptions: No Action ciprofloxacin HCl 0.3 % drops See Rx Instructions EACH EYE .COMPLEX Qty: 2.5 0RF Rx Instructions: put 1 drop in left eye every 2hr up to 8 times/day x2days; then 4 times/day x5days primidone [Mysoline] 50 mg tablet 50 mg PO QHS Qty: 60 12RF sildenafil 100 mg tablet 100 mg PO DAILY PRN (Reason: sexual activity) Qty: 14 0RF Rx Instructions: administer 30 minutes to 4 hours before activity Men's 50 Plus Multivitamin 400-20-370 mcg tablet 1 tablet PO DAILY ibuprofen 800 mg tablet 800 mg PO TID PRN (Reason: Pain) Qty: 90 2RF clonazepam 1 mg tablet 1 mg PO QHS PRN (Reason: tremors) Qty: 90 3RF amitriptyline 25 mg tablet See Rx Instructions .ROUTE .COMPLEX Qty: 90 1RF Dose Instruction: TAKE ONE TABLET BY MOUTH DAILY Rx Instructions: TAKE ONE TABLET BY MOUTH DAILY propranolol 10 mg tablet 10 mg PO TID Qty: 90 1RF Follow-up/Referrals: Ban Daniel MD [Primary Care Provider] -
--- NOTE | 2024-11-06 13:59 | ECG_ITS ---
Test Date: 2024-11-06 14:02:57 Measurements Intervals [place] Rate: 58 P: 75 DC: 162 QRS: 18 QRSD: 102 T: 12 QT: 426 QTc: 422 Interpretive Statements SINUS BRADYCARDIA POSSIBLE LEFT ATRIAL ENLARGEMENT DELAYED PRECORDIAL R/S TRANSITION POSSIBLE LEFT VENTRICULAR HYPERTROPHY MINIMAL Q WAVES- LATERAL LEADS BORDERLINE ST-T WAVE ABNORMALITY- INFERIOR LEADS BASELINE ARTIFACT- I, II, III, AVR, AVL, AVF, V5-V6 BORDERLINE ECG No previous ECG available for comparison Electronically Signed On 11-06-2024 14:19:43 M[employer]I [employer] HELICOPTER AIRCREWMAN by Lopez Gonzales D.O.
[2024-11-06 14:03] LABS: Basophils Percent Auto 0.6 % (0.2-1.2); Eosinophils Percent Auto 0.6 % (0-4.4); Hematocrit 40.1 % (42.0-52.0); Hemoglobin 13.8 g/dL (14.0-18.0); Immature Granulocyte Absolute 0.01 K/mm3 (0.00-0.031); Immature Granulocyte Percent A 0.2 % (0-0.5); Lymphocytes Absolute Auto 1.68 K/mm3 (0.9-3.2); Lymphocytes Percent Auto 34.4 % (18.3-44.2); Mean Corpuscular HGB Conc 34.4 g/dl (32-36); Mean Corpuscular Hemoglobin 31.3 pg (26-34); Mean Corpuscular Volume 90.9 fl (80-100); Mean Platelet Volume 9.7 fl (7.4-10.4); Monocytes Absolute Auto 0.3 K/mm3 (0.1-0.6); Monocytes Percent Auto 6.6 % (2.6-8.5); Neutrophils Absolute Auto 2.8 K/mm3 (1.3-6.7); Neutrophils Percent Auto 57.6 % (45.5-73.1); Platelet Count Result 186 k/mm3 (150-375); Red Blood Count 4.41 M/mm3 (4.6-6.20); Red Cell Distribution Width 12.4 % (11.5-14.5); White Blood Count 4.9 K/mm3 (4.5-10.0)
--- OUTSIDE RECORDS SUMMARY | 2024-11-06 14:03 | XMS_ITS | Clinical Summary ---
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
--- OUTSIDE RECORDS SUMMARY | 2024-11-06 14:03 | XMS_ITS | Clinical Summary ---
[facility] Organization [facility] Address [address] [place] [address] Care Team Providers Care Embossing Calender Operator Name Role Phone Luther Ch Primary Care [...] on file Legal Sex Male 3:28 AM EMULSIFICATION OPERATOR Gender Identity Not on file Sexual Orientation [...] patient's age to complete this topic Insurance [facility] OPTIONS PPO [facility] Care Teams Embossing Calender Operator Relationship Specialty Start Date End Date Luther Ch PA [address] [place] [address] PCP - General Physician Latrine Cleaner 02/09/22
--- OUTSIDE RECORDS SUMMARY | 2024-11-06 14:03 | XMS_ITS | Patient Health Summary ---
Author Organization [facility] Address [address] [place] [address] Care Team Providers Care Theater Usher Name Role Phone Tadeo Segovia MD Primary Care Provider [phone] Note from [facility],non-owned Affiliates and Associated Physician Practices is amultiple site organization consisting of ambulatory clinics and hospital sitesin [place], [place], [place] and [place]. This disclosure is being madepursuant to the Care Everywhere program and may not contain all information available regarding this patient. Last updated 18.[facility] Active Problems Problem Noted Date Diagnosed Date [...] Comments Blood Pressure 110/70 07/23/2013 9:49 AM TAKE DOWN SORTER Pulse - - Temperature 37.1 C (98.8 F) 07/23/2013 9:49 AM TAKE DOWN SORTER Respiratory Rate - - Oxygen Saturation - - Inhaled Oxygen Concentration - - Weight 70.3 kg (155 lb) 07/23/2013 9:49 AM TAKE DOWN SORTER Height 172.7 cm (5' 8 ) 07/23/2013 9:49 AM TAKE DOWN SORTER Body Mass Index 23.57 07/23/2013 9:49 AM TAKE DOWN SORTER Care Teams Theater Usher Relationship Specialty Start Date End Date Tadeo Segovia MD [address] [place] [address] PCP - General 06/11/13
--- OUTSIDE RECORDS SUMMARY | 2024-11-06 14:03 | XMS_ITS | Referral Summary ---
Author Organization [facility] Address [address] [place] [address] Care Team Providers Care Acreage Reporter Name Role Phone Luther Ch Primary Care [...] on file Legal Sex Male 3:28 AM BUSINESS RECORDS MANAGER Gender Identity Not on file Sexual [...] Plan of Treatment Not on file [facility] Care Teams Acreage Reporter Relationship Specialty Start Date End Date Luther Ch PA [address] [place], [facility]34 PCP - General Physician Children'S Entertainer 02/09/22
--- OUTSIDE RECORDS SUMMARY | 2024-11-06 14:03 | XMS_ITS | Referral Summary ---
Author Organization [facility] [employer] Address [address] [place] [address] Care Team Providers Care Ciaio Lumite Injector Name Role Phone Tadeo Segovia MD Primary Care Provider [phone] Source Comments [facility] [employer],non-owned Affiliates and Associated Physician Practices is amultiple site organization consisting of ambulatory clinics and hospital sitesin [place], [place], [place] and [place]. This disclosure is being madepursuant to the Care Everywhere program and may not contain all information available regarding this patient. Last updated 18.[facility] Active Problems Problem Noted Date Diagnosed Date [...] Comments Blood Pressure 110/70 07/23/2013 9:49 AM SPA SUPERVISOR Pulse - - Temperature 37.1 C (98.8 F) 07/23/2013 9:49 AM SPA SUPERVISOR Respiratory Rate - - Oxygen Saturation - - Inhaled Oxygen Concentration - - Weight 70.3 kg (155 lb) 07/23/2013 9:49 AM SPA SUPERVISOR Height 172.7 cm (5' 8 ) 07/23/2013 9:49 AM SPA SUPERVISOR Body Mass Index 23.57 07/23/2013 9:49 AM SPA SUPERVISOR Plan of Treatment Not on file Care Teams Ciaio Lumite Injector Relationship Specialty Start Date End Date Tadeo Segovia MD [address] [place] [address] PCP - General 06/11/13
--- OUTSIDE RECORDS SUMMARY | 2024-11-06 14:03 | XMS_ITS | Clinical Summary ---
Author Organization [facility] [employer] Address [address] [place] [address] Care Team Providers Care Scaler Packer Name Role Phone Tadeo Segovia MD Primary Care Provider [phone] Source Comments [facility] [employer],non-owned Affiliates and Associated Physician Practices is amultiple site organization consisting of ambulatory clinics and hospital sitesin [place], [place], [place] and [place]. This disclosure is being madepursuant to the Care Everywhere program and may not contain all information available regarding this patient. Last updated 18.[facility] [employer] Active Problems Problem Noted Date Diagnosed Date [...] Comments Blood Pressure 110/70 07/23/2013 9:49 AM GRIDDLE COOK Pulse - - Temperature 37.1 C (98.8 F) 07/23/2013 9:49 AM GRIDDLE COOK Respiratory Rate - - Oxygen Saturation - - Inhaled Oxygen Concentration - - Weight 70.3 kg (155 lb) 07/23/2013 9:49 AM GRIDDLE COOK Height 172.7 cm (5' 8 ) 07/23/2013 9:49 AM GRIDDLE COOK Body Mass Index 23.57 07/23/2013 9:49 AM GRIDDLE COOK Plan of Treatment Health Maintenance Due Date [...] age to complete this topic Care Teams Scaler Packer Relationship Specialty Start Date End Date Tadeo Segovia MD [address] [place] [address] PCP - General 06/11/13
[2024-11-06 14:14] LABS: Alanine Aminotransferase 20 U/L (6-50); Albumin Level 4.4 g/dL (3.5-5.1); Alkaline Phosphatase 45 U/L (38-126); Anion Gap 8 mmol/L (4-12); Aspartate Amino Transferase 25 U/L (17-59); Bilirubin,Total 0.9 mg/dL (0.2-1.3); Blood Urea Nitrogen 12 mg/dL (9-20); Calcium 9.4 mg/dL (8.4-10.2); Carbon Dioxide 28 mmol/L (22-30); Chloride 102 mmol/L (98-107); Estimated CRCL calculation 116 ml/min; Estimated Glomerular Filt Rate > 60; Glucose 105 mg/dL (65-110); Potassium 4.1 mmol/L (3.4-5.0); Sodium 138 mmol/L (137-145)
--- NOTE | 2024-11-06 14:15 | PC.NURSE ---
Pt was sitting in chair, reported feeling woozy , nauseated, and was slightly diaphoretic. RN was preparing to get labs, had not stuck him yet, states blood does not bother him. First BP was 82/49. IV started, labs sent. Repeat BP 76/45 with HR 48 bpm. Fluids started, EKG completed. Pt remained seated, did not lose consciousness. BP immediately following EKG was 102/63. Pt taken to treatment room in ED.
[2024-11-06 14:38] LABS: Influenza A QL RT-PCR Negative (Negative); Influenza B QL RT-PCR Negative (Negative); RSV RNA, RT-PCR Negative (Negative); SARS-CoV-2 RNA PCR Negative (Negative)
--- NOTE | 2024-11-06 15:49 | ED_ITS ---
HPI - General Adult General Chief complaint: Neuro Symptoms/Deficit Stated complaint: AMS, headache, shaky Time Seen by Provider: 11/06/24 13:27 Source: patient Mode of arrival: ambulatory Limitations: no limitations History of Present Illness HPI narrative: 59 years old white male history of concussion status post ski injury 3 years ago with some cognitive impairment developed right forehead headache like sharp radiating to the back beats head, denies aggravating or relieving factors started last night, 11/24, this morning 11/24 at work 03/26. Patient denies any fever, chills, nausea, vomiting, diarrhea, constipation, chest pain, shortness of breath or abdominal pain. 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 History of tremors and concussion. Patient report history of headache, possible migraine, never been diagnosed officially. Patient report he had worse headaches than this 1 in the past. His is telling me that patient have headache on average once every 2 weeks for a while Related Data Home Medications ?Medication ?Instructions ?Recorded ?Confirmed ?Last Taken ?Type fkwbpcxzmswc-vdi-igqsn acid-vit 1 tablet PO DAILY 09/28/22 10/02/24 Unknown History K-lycop 400 mcg-20 mcg-370 mcg tablet (Men's 50 Plus Multivitamin) Allergies Allergy/AdvReac Type Severity Reaction Status Date / Time sertraline AdvReac Intermediate Anxiety Verified 11/06/24 12:37 Review of Systems 2 Review of Systems: All systems reviewed & are unremarkable except as noted in HPI and below PMFSH Past Medical History Medical History Cognitive impairment Sleep disorder Back pain Postconcussive syndrome Concussion Wears glasses Chronic headaches Hallux rigidus of left foot Lateral epicondylitis of both elbows TMJ disorder involving articular disc abnormality Lymphocele after surgical procedure Cervical neck pain with evidence of disc disease 1st MTP arthritis External thrombosed hemorrhoids Surgical History Surgical History History of lymph node excision Family History Family History Grandparent Diabetes mellitus Father Diabetes mellitus Malignant neoplasm of prostate Mother Hypertension, Onset Age: 65 Family history of cardiovascular disease, Onset Age: 65 Social History Social History Smoking status: Never smoker Alcohol intake: current Alcohol use details: beer or wine once a month Substance use: never Substance use type: does not use Do You Feel Safe in your Home?: Yes Lack of Transportation: No Lack of Food: Never True Current Housing: I Have Housing Concerned About Future Housing: No Difficulty Paying Gas/Electric Bills: No Difficulty Paying for Meds: No Currently Unemployed: No Education: Master's Degree or Higher Difficulty w/ Childcare or Family Care: No Living arrangements: with family Gender identity (if verbalized by the patient): Male Exam 2 Narrative: General appearance: Well-developed, well-nourished Skin: Normal color Head: Normocephalic, nontraumatic Eyes: Clear conjunctiva, pupils are reactive to light and accommodation, extraocular muscle movement within normal limit, left pupil slightly smaller than the right 1 ENT: Oropharynx normal, ears normal, nose normal Neck: Supple, nontender Chest and respiratory: Airway patent, no respiratory distress, no accessory muscle use Heart: Regular rate/rhythm Abdomen: Soft, nontender, no organomegaly, quiet bowel sounds Vascular: Normal peripheral pulses, normal capillary refill. Musculoskeletal: Normal range of motion, nontender back Neurologic: Alert and oriented ?3, takes time to answer questions Course Consultations Consultation #1: DR APARICIO [facility]CRAFT LANDING GEAR INSPECT[facility], REQUESTED TO SEE PATIENT AT 9:00 A.M. OUTPATIENT. Date: 11/06/24 Vital Signs Vital signs: Vital Signs Temperature 36.2 C L 11/06/24 12:30 Pulse Rate 61 11/06/24 12:30 Respiratory Rate 17 11/06/24 12:30 Blood Pressure 130/80 11/06/24 12:30 Pulse Oximetry 100 11/06/24 12:30 Oxygen Delivery Room Air 11/06/24 12:30 Temperature 36.6 C 11/06/24 18:00 Pulse Rate 66 11/06/24 20:30 Respiratory Rate 14 11/06/24 20:30 Blood Pressure 134/84 11/06/24 20:30 Pulse Oximetry 98 11/06/24 20:30 Oxygen Delivery Room Air 11/06/24 12:30 Medical Decision Making [facility] Narrative Medical decision making narrative: Patient presents with headache and stress Vital signs are stable Physical examination showed left pupil slightly smaller than the right 1, both are reactive to light and accommodation, extraocular muscle movement within normal limit Differential diagnosis anxiety like symptoms, migraine headache, intracranial abnormalities, TEMPORALIS ARTHRITIS Blood workup today includes CBC, CMP, SED RATE AND CRP showed insignificant abnormalities CT head and CT cervical spine without contrast showed no acute abnormalities Respiratory panel came back negative for COVID flu and RSV CTA of the neck showed IMPRESSION: 1. No atherosclerotic plaque with 0% stenosis of the right and left carotid bulbs relative to normal distal artery lumen diameter (NASCET criteria). 2. Normal anatomic variations the cerebral vascular supply as detailed above with no hematoma significant stenosis, thrombosis or aneurysm. DR. APARICIO THE SON LARGEST [facility] REQUESTED TO SEE PATIENT AT 9:00 A.M. AT OUTPATIENT CLINIC. FOR FURTHER EVALUATION Differential Diagnosis Differential Diagnosis: ABOVE Vital Signs Vital Signs: Vital Signs Temperature 36.2 C L 11/06/24 12:30 Pulse Rate 61 11/06/24 12:30 Respiratory Rate 17 11/06/24 12:30 Blood Pressure 130/80 11/06/24 12:30 Pulse Oximetry 100 11/06/24 12:30 Oxygen Delivery Room Air 11/06/24 12:30 Temperature 36.6 C 11/06/24 18:00 Pulse Rate 66 11/06/24 20:30 Respiratory Rate 14 11/06/24 20:30 Blood Pressure 134/84 11/06/24 20:30 Pulse Oximetry 98 11/06/24 20:30 Oxygen Delivery Room Air 11/06/24 12:30 Lab Data 11/06/24 13:50 11/06/24 13:50 Labs: Lab Results 11/06/24 Range/Units 13:50 WBC 4.9 (4.5-10.0) K/mm3 RBC 4.41 L (4.6-6.20) M/mm3 Hgb 13.8 L (14.0-18.0) g/dL Hct 40.1 L (42.0-52.0) % MCV 90.9 (80-100) fl MCH 31.3 (26-34) pg MCHC 34.4 (32-36) g/dl RDW 12.4 (11.5-14.5) % Plt Count 186 (150-375) k/mm3 MPV 9.7 (7.4-10.4) fl Immature Gran % (Auto) 0.2 (0-0.5) % Neut % (Auto) 57.6 (45.5-73.1) % Lymph % (Auto) 34.4 (18.3-44.2) % Winston % (Auto) 6.6 (2.6-8.5) % Eos % (Auto) 0.6 (0-4.4) % Baso % (Auto) 0.6 (0.2-1.2) % Lymph # (Auto) 1.68 (0.9-3.2) K/mm3 Winston # (Auto) 0.3 (0.1-0.6) K/mm3 Eos # (Auto) 0.0 (0-0.3) K/mm3 Baso # (Auto) 0.0 (0.0-0.1) K/mm3 Abs Immat Gran (auto) 0.01 (0.00-0.031) K/mm3 Absolute Neuts (auto) 2.8 (1.3-6.7) K/mm3 Absolute Nucleated RBC 0.000 (0.0-0.012) K/mm3 Nucleated RBC % 0.0 (0.0-0.2) % ESR 5 (0-20) mm/hr Sodium 138 (137-145) mmol/L Potassium 4.1 (3.4-5.0) mmol/L Chloride 102 (98-107) mmol/L Carbon Dioxide 28 (22-30) mmol/L Anion Gap 8 (4-12) mmol/L BUN 12 D (9-20) mg/dL Creatinine 0.52 L (0.7-1.3) mg/dL Estim Creat Clear Calc 116 ml/min Estimated GFR > 60 (59 - ) Glucose 105 (65-110) mg/dL Calcium 9.4 (8.4-10.2) mg/dL Total Bilirubin 0.9 (0.2-1.3) mg/dL AST 25 (17-59) U/L ALT 20 (6-50) U/L Alkaline Phosphatase 45 (38-126) U/L C-Reactive Protein < 0.5 (<1.0) mg/dL Total Protein 7.0 (6.3-8.2) g/dL Albumin 4.4 (3.5-5.1) g/dL Influenza A (RT-PCR) Negative (Negative) Influenza B (RT-PCR) Negative (Negative) RSV (RT-PCR) Negative (Negative) SARS-CoV-2 RNA (RT-PCR) Negative (Negative) Discharge Plan Discharge Clinical Impression: Headache, Anisocoria Patient Disposition: Home, Self-Care Condition: Stable Instructions: Acute Headache (DC) Additional Instructions: RETURN IF SYMPTOMS ARE WORSENING , CALL YOUR FAMILY PHYSICIAN FOR APPOINTMENT, TAKE TYLENOL 650 MG AND OR IBUPROFEN 600 EVERY 6 HOURS NEEDED FOR ACHES AND PAIN, CONTINUE HOME MEDICATIONS. SEE DR. APARICIO, THE AIRCRAFT LANDING GEAR INSPECTOR AT 9:00 A.M. TOMORROW MORNING, ADDRESS [address] [place] [address] PHONE NUMBER IS . Patient Language: Armenian Prescriptions: No Action ciprofloxacin HCl 0.3 % drops See Rx Instructions EACH EYE .COMPLEX Qty: 2.5 0RF Rx Instructions: put 1 drop in left eye every 2hr up to 8 times/day x2days; then 4 times/day x5days primidone [Mysoline] 50 mg tablet 50 mg PO QHS Qty: 60 12RF sildenafil 100 mg tablet 100 mg PO DAILY PRN (Reason: sexual activity) Qty: 14 0RF Rx Instructions: administer 30 minutes to 4 hours before activity Men's 50 Plus Multivitamin 400-20-370 mcg tablet 1 tablet PO DAILY ibuprofen 800 mg tablet 800 mg PO TID PRN (Reason: Pain) Qty: 90 2RF clonazepam 1 mg tablet 1 mg PO QHS PRN (Reason: tremors) Qty: 90 3RF amitriptyline 25 mg tablet See Rx Instructions .ROUTE .COMPLEX Qty: 90 1RF Dose Instruction: TAKE ONE TABLET BY MOUTH DAILY Rx Instructions: TAKE ONE TABLET BY MOUTH DAILY propranolol 10 mg tablet 10 mg PO TID Qty: 90 1RF Follow-up/Referrals: Ban Daniel MD [Primary Care Provider] -
[2024-11-06] MEDS: ACETAMINOPHEN 500 MG TABLET 1000 MG PO (16:29)
[2024-11-06] MEDS: KETOROLAC 30 MG/ML VIAL (*BKC) IV PUSH (16:29)
[2024-11-06] MEDS: LORazepam INJ (*CRX) 2 MG/ML VIAL 1 MG IV PUSH (16:30)
[2024-11-06] MEDS: SODIUM CHLORIDE 0.9% IV 1,000 ML 999 ML IV CONT (16:30)
[2024-11-06 20:16] LABS: CRP < 0.5 mg/dL (<1.0)
[2024-11-06 20:26] LABS: Erythrocyte Sedimentation Rate 5 mm/hr (0-20)
[2024-11-06] MEDS: HYDROmorphone HCL INJ (*CRX) 1 MG/ML SYR 0.5 MG IV PUSH (20:32)
[2024-11-06] MEDS: ONDANSETRON INJ 4 MG/2 ML VIAL IV PUSH (20:32)
== END 2024-11-06 21:15 | disposition home or self-care (01) ==
PROVIDERS: Physician Assistant; Emergency Provider Emergency Medicine; PCP Family Medicine
DX: R51.9 Headache, unspecified (principal); H57.02 Anisocoria; Z20.822 Contact with and (suspected) exposure to COVID-19
CPT/HCPCS: 36415; 70450; 70496; 70498; 80053; 85025; 85652; 86140; 87637; 93005; 96361; 96374; 96375; 99284; A9270; J1171; J1885; J2060; J2405; J7030; Q9967

== ENCOUNTER 2024-11-26 15:10 | Outpatient (CLI) | payer OTHER, SELFPAY ==
--- NOTE | ~2024-11-26 | CT_ITS ---
Non-contrast CT scan of the Abdomen and Pelvis and lumbar spine Clinical indication: Abnormal weight loss Technique: 2.5 mm axial scans were obtained through the abdomen and pelvis without intravenous or or al contrast. Dedicated axial imaging of the lumbar spine was also performed with sagittal and coronal reformatted images. Dose reduction technique was used on this scan by utilizing automated exposure c ontrol and iterative reconstruction technique. The dose-length product (DLP) was 297.17 mGy-cm. COMPARISON: 07/25/2023 Abdominopelvic Findings: Images through the lung bases reveal no abnormalities. There is no evidence of renal or ureteral calculi. The kidneys and the ureters are nondilated. The liver, spleen, pancreas, gallbladder, and adrenals appear normal. There are mild atherosclerotic calcifications of the aorta. . There is no evidence of bowel obstruction. Images through the pelvis were performed. Small amount of pelvic ascites noted with a layering 9 mm o void calcification (axial image 133).. Urinary bladder unremarkable. No pelvic soft tissues mass seen . Lumbar spine findings: There is no fracture or subluxation of the lumbar spine. Vertebral bodies main tain normal height and alignment. There is mild degenerative disc narrowing at L5-S1. Remainder space s are relatively well-preserved. At L1-L2, there is no disc bulge or herniation. No spinal canal stenosis or neural foraminal narrowin g. At L2-L3, there is minimal disc bulge with mild facet arthropathy. Possible minimal central canal hollis nosis. Neural foramina are preserved. At L3-L4, there is mild disc bulge with advanced facet arthropathy. Probable moderate central canal s tenosis. Possible minimal left neural foraminal narrowing. Right neural foramen probably preserved. At L4-L5, there is mild disc bulge with moderate facet arthropathy. No central canal stenosis. There is probable mild bilateral neural foraminal narrowing. L5-S1, there is minimal disc bulge. No spinal canal stenosis. There is possible minimal left neural f oraminal narrowing. Right neural foramen preserved. Impression: Small amount of pelvic ascites with 9 mm ovoid layering calcification within it, indeterminate. No di stinct abscess or acute inflammatory process. Mild degenerative spondylosis of lumbar spine, as above. Reviewed, dictated and finalized at location M. Impression: Small amount of pelvic ascites with 9 mm ovoid layering calcification within it , indeterminate. No distinct abscess or acute inflammatory process. Mild degenerative spondylosis of lumbar spine, as above.
== END 2024-11-26 15:11 | disposition home or self-care (01) ==
LOC: GOSHIMG 15:10
PROVIDERS: PCP Family Medicine; Visit Provider Family Medicine
DX: R63.4 Abnormal weight loss (principal); R63.0 Anorexia; R10.9 Unspecified abdominal pain; M47.896 Other spondylosis, lumbar region
CPT/HCPCS: 72131; 74176

== ENCOUNTER 2025-01-27 10:02 | Outpatient (CLI) | payer OTHER, SELFPAY ==
--- OUTSIDE RECORDS SUMMARY | 2025-01-27 10:15 | XMS_ITS | Clinical Summary ---
Author Organization [facility] [employer] Address [address] [place] [address] Care Team Providers Care Pipe Recovery Specialist Name Role Phone Ban Daniel MD Primary Care Provider [phone] Tadeo Segovia MD Unavailable [phone] Source Comments [facility] [employer]non-owned Affiliates and Associated Physician Practices is amultiple site organization consisting of ambulatory clinics and hospital sitesin [place], [place], [place] and [place]. This disclosure is being madepursuant to the Care Everywhere program and may not contain all information available regarding this patient. Last updated 18.[facility] [employer] Medications * Be aware that medications may not be up to date on this document. Alwaysverify current medications with the patient. 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 Encounters Date Type Department Care Team Description 11/07/2024 9:00 AM MERCHANDISE SUPERVISOR Office Visit [facility] - Ophthalmology [address] [place] [phone] Physiologic anisocoria (Primary Dx); Refractive error 11/07/2024 Telephone [facility] - Ophthalmology [address] [place], [place] [phone] Romeo Goldberg MD Eye Problem from Last 3 Months Social History Tobacco Use Types Packs/Day Years Used Date Smoking Tobacco: Never Tobacco Cessation:Counseling Given: Not Answered Alcohol Use Standard Drinks/Week Comments Yes 0 (1 standard drink = 0.6 oz pur e alcohol) Sex and Gender Information Value Date Recorded Sex Assigned at Not on file Legal Sex Male 6:39 PM MERCHANDISE SUPERVISOR Gender Identity Not on file Sexual Orientation Not on file Last Filed Vital Signs Vital Sign Reading Time Taken Comments Blood Pressure 110/70 07/23/2013 9:49 AM MERCHANDISE SUPERVISOR Pulse - - Temperature 37.1 C (98.8 F) 07/23/2013 9:49 AM MERCHANDISE SUPERVISOR Respiratory Rate - - Oxygen Saturation - - Inhaled Oxygen Concentration - - Weight 70.3 kg (155 lb) 07/23/2013 9:49 AM MERCHANDISE SUPERVISOR Height 172.7 cm (5' 8 ) 07/23/2013 9:49 AM MERCHANDISE SUPERVISOR Body Mass Index 23.57 07/23/2013 9:49 AM MERCHANDISE SUPERVISOR Plan of Treatment Health Maintenance Due Date [...] VACCINE (1 of 2) 2016 COVID-19 VACCINE ( - 2023-2 5 season) 2024 DEPRESSION SCREENING 09/17/2024 INFLUENZA VACCINE (Season Ended) 2025 HIB VACCINE Aged Out No longer eligi ble based on patient's age to complete this topic HPV VACCINE Aged Out No longer eligi ble based on patient's age to complete this topic MENINGOCOCCAL (Group B) VACC INE SHARED DECISION-MAKING Aged Out No longer eligibl e based on patient's age to complete this topic MENINGOCOCCAL GROUPS A/C/Y/W VACCINE Aged Out No longer eligible b ased on patient's age to complete this topic Insurance [facility] Care Teams Pipe Recovery Specialist Relationship Specialty Start Date End Date Ban Daniel MD [address] [place] [address] PCP - General Family Medicine 11/07/24 Tadeo Segovia MD [address] [place] [id number] 11/07/24
--- OUTSIDE RECORDS SUMMARY | 2025-01-27 10:15 | XMS_ITS | Clinical Summary ---
Author Organization [facility] Address [address] [place] [address] Care Team Providers Care Dam Attendant Name Role Phone Luther Ch Primary Care [...] on file Legal Sex Male 3:28 AM KITCHEN CLERK Gender Identity Not on file Sexual Orientation [...] season) 2024 09/08/2021, 01/06/2021, 12/16/2020 Influenza Vaccine (Season Ended) 2025 08/01/2021, 07/12/2020, 09/07/2014, Additional history exists Pneumococcal vaccine <65 Aged Out No longer eligible based on patient's age to complete this topic Insurance [employer] [facility] Care Teams Dam Attendant Relationship Specialty Start Date End Date Luther Ch PA [address] [place] [address] PCP - General Physician Excelsior Picker 02/09/22
--- OUTSIDE RECORDS SUMMARY | 2025-01-27 10:15 | XMS_ITS | Referral Summary ---
Author Organization [facility] Address [address] [place] [address] Care Team Providers Care Medical Assistant Ob Gyn Name Role Phone Luther Ch Primary Care [...] on file Legal Sex Male 3:28 AM CRITICAL POWER TECHNICIAN Gender Identity Not on file Sexual Orientation [...] Plan of Treatment Not on file Insurance [facility] Care Teams Medical Assistant Ob Gyn Relationship Specialty Start Date End Date Luther Ch PA [address] [place] [facility] PCP - General Physician Supply Chain Project Manager 02/09/22
--- OUTSIDE RECORDS SUMMARY | 2025-01-27 10:15 | XMS_ITS | Clinical Summary ---
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
[2025-01-27 13:15] LABS: Basophils Percent Auto 0.9 % (0.2-1.2); Eosinophils Absolute Auto 0.1 K/mm3 (0-0.3); Eosinophils Percent Auto 2.1 % (0-4.4); Hematocrit 42.2 % (42.0-52.0); Hemoglobin 14.2 g/dL (14.0-18.0); Lymphocytes Absolute Auto 1.71 K/mm3 (0.9-3.2); Lymphocytes Percent Auto 39.3 % (18.3-44.2); Mean Corpuscular HGB Conc 33.6 g/dl (32-36); Mean Corpuscular Hemoglobin 31.5 pg (26-34); Mean Corpuscular Volume 93.6 fl (80-100); Mean Platelet Volume 10.7 fl (7.4-10.4); Monocytes Absolute Auto 0.4 K/mm3 (0.1-0.6); Monocytes Percent Auto 8.7 % (2.6-8.5); Neutrophils Absolute Auto 2.1 K/mm3 (1.3-6.7); Platelet Count Result 173 k/mm3 (150-375); Red Blood Count 4.51 M/mm3 (4.6-6.20); White Blood Count 4.4 K/mm3 (4.5-10.0)
[2025-01-27 14:16] LABS: Alanine Aminotransferase 20 U/L (6-50); Albumin Level 4.5 g/dL (3.5-5.1); Alkaline Phosphatase 44 U/L (38-126); Anion Gap 8 mmol/L (4-12); Aspartate Amino Transferase 40 U/L (17-59); Bilirubin,Total 0.7 mg/dL (0.2-1.3); Blood Urea Nitrogen 15 mg/dL (9-20); Calcium 9.1 mg/dL (8.4-10.2); Carbon Dioxide 32 mmol/L (22-30); Chloride 101 mmol/L (98-107); Estimated Glomerular Filt Rate > 60; Glucose 83 mg/dL (65-110); Potassium 3.9 mmol/L (3.4-5.0); Sodium 141 mmol/L (137-145)
[2025-01-27 14:47] LABS: Thyroid Stimulating Hormone 0.646 uIU/mL (0.465-4.680)
[2025-01-30 14:02] LABS: Immunoglobulin A 194 mg/dL (47-310); TTG IGA AB <1.0 U/mL
== END 2025-01-27 10:03 | disposition home or self-care (01) ==
LOC: ANHGOSHLAB 10:02
PROVIDERS: PCP Family Medicine; Visit Provider Family Medicine
DX: R25.1 Tremor, unspecified (principal)
CPT/HCPCS: 36415; 80053; 82607; 82728; 82784; 84443; 85025

== ENCOUNTER 2025-05-11 01:11 | Day surgery (SDC) | payer OTHER, SELFPAY ==
[2025-05-05 13:37] VITALS: BMI 20.4
[2025-05-11 09:40] VITALS: BP 126/71; PULSE 68; RESP 18; TEMP 36.4; O2SAT 100; BMI 19.0
--- NOTE | 2025-05-11 09:56 | WPDANESEPPF ---
Anes - Initial Pre Proc Eval Procedure: Operation Date: 05/11/25 10:30 Proposed Procedures p EGD & Diagnostic Colonoscopy - Nando Parra MD Date/Time: 05/11/25 09:56 Surgeon: Nando Parra MD Pre Op Diagnosis: Unspecified abdominal pain, Constipation Patient Data Age: 59 Gender: M Height: 1.73 m Weight: 56.8 kg Last Vital Signs Temp 36.4 C 05/11/25 09:40 Pulse 68 05/11/25 09:40 Resp 18 05/11/25 09:40 BP 126/71 05/11/25 09:40 Pulse Ox 100 05/11/25 09:40 O2 Del Method Room Air 05/11/25 09:40 Allergies Allergy/AdvReac Type Severity Reaction Status Date / Time sertraline AdvReac Intermediate Anxiety Verified 05/11/25 09:46 Home Medications ?Medication ?Instructions ?Recorded ?Confirmed ?Type sildenafil 100 mg tablet 100 mg PO DAILY PRN sexual 08/28/22 05/05/25 Rx activity #14 tabs dyvrerwgmzbn-gvd-lafmi acid-vit 1 tablet PO DAILY 09/28/22 05/11/25 History K-lycop 400 mcg-20 mcg-370 mcg tablet (Men's 50 Plus Multivitamin) ibuprofen 800 mg tablet 800 mg PO TID PRN Pain #90 tabs 05/13/24 05/05/25 Rx clonazepam 1 mg tablet 1 mg PO QHS PRN tremors #90 ea 03/30/25 05/05/25 Rx propranolol 10 mg tablet 10 mg PO TID #90 tabs 03/30/25 05/11/25 Rx escitalopram oxalate 10 mg tablet 10 mg PO DAILY #90 tabs 03/31/25 05/11/25 Rx (Lexapro) primidone 50 mg tablet (Mysoline) 50 mg PO QHS #60 tabs 03/31/25 05/11/25 Rx mirtazapine 15 mg tablet (Remeron) 15 mg PO QHS #30 tabs 05/04/25 05/11/25 Rx Patient hx anesthesia problems: none Family hx anesthesia problems: none Results Review: All pre-operative results and documents have been reviewed as part of the pre-operative evaluation. [facility] Past Medical History Medical History Change in bowel habits Cognitive impairment Sleep disorder Back pain Postconcussive syndrome Concussion Wears glasses Chronic headaches Hallux rigidus of left foot Lateral epicondylitis of both elbows TMJ disorder involving articular disc abnormality Lymphocele after surgical procedure Cervical neck pain with evidence of disc disease 1st MTP arthritis External thrombosed hemorrhoids Surgical History Surgical History History of lymph node excision Family History Family History Grandparent Diabetes mellitus Father Diabetes mellitus Malignant neoplasm of prostate Mother Hypertension, Onset Age: 65 Family history of cardiovascular disease, Onset Age: 65 Social History Social History Smoking status: Never smoker Alcohol intake: current Alcohol use details: beer or wine once a month Substance use: never Substance use type: does not use Do You Feel Safe in your Home?: Yes Lack of Transportation: No Lack of Food: Never True Current Housing: I Have Housing Concerned About Future Housing: No Difficulty Paying Gas/Electric Bills: No Difficulty Paying for Meds: No Currently Unemployed: No Education: Master's Degree or Higher Difficulty w/ Childcare or Family Care: No Living arrangements: with family Gender identity (if verbalized by the patient): Male Anes - Eval Final PreProcedure Day of Procedure 05/11/25 09:56 Patient weight: normal Heart: regular rate and rhythm Lungs: clear to auscultation Airway: Mallampati scale class II Neurological: alert and oriented Last oral intake: >/= 8 hours ASA classification: III Emergent: no Anesthetic plan: proceed Anesthesia type and monitoring: general GIVS and standard monitoring Results Review: All pre-operative results and documents have been reviewed as part of the pre-operative evaluation. Informed Consent: The patient's anesthetic plan and its attendant risks and benefits were discussed with the patient/family/POA. Questions were solicited and answers provided to the satisfaction of the patient/family/POA.
--- NOTE | 2025-05-11 10:08 | PM.HPGS ---
History of Present Illness History of Present Illness Consent: Risks, benefits, and alternatives have been discussed and questions answered. Patient agrees to proceed with procedure. Chief complaint: Unspecified abdominal pain, Constipation Narrative: Kaye Galloway is a 59 year old male with weight loss and constipation, last colonoscopy 2018 Review of Systems Review of Systems: All systems reviewed & are unremarkable except as noted in HPI and below PMFSH Past Medical History Medical History Change in bowel habits Cognitive impairment Sleep disorder Back pain Postconcussive syndrome Concussion Wears glasses Chronic headaches Hallux rigidus of left foot Lateral epicondylitis of both elbows TMJ disorder involving articular disc abnormality Lymphocele after surgical procedure Cervical neck pain with evidence of disc disease 1st MTP arthritis External thrombosed hemorrhoids Surgical History Surgical History History of lymph node excision Family History Family History Grandparent Diabetes mellitus Father Diabetes mellitus Malignant neoplasm of prostate Mother Hypertension, Onset Age: 65 Family history of cardiovascular disease, Onset Age: 65 Social History Social History Smoking status: Never smoker Alcohol intake: current Alcohol use details: beer or wine once a month Substance use: never Substance use type: does not use Do You Feel Safe in your Home?: Yes Lack of Transportation: No Lack of Food: Never True Current Housing: I Have Housing Concerned About Future Housing: No Difficulty Paying Gas/Electric Bills: No Difficulty Paying for Meds: No Currently Unemployed: No Education: Master's Degree or Higher Difficulty w/ Childcare or Family Care: No Living arrangements: with family Gender identity (if verbalized by the patient): Male Meds Home Medications and Allergies Home Medications ?Medication ?Instructions ?Recorded ?Confirmed ?Type sildenafil 100 mg tablet 100 mg PO DAILY PRN sexual 08/28/22 05/05/25 Rx activity #14 tabs opxdcykwyaot-ycd-ihoga acid-vit 1 tablet PO DAILY 09/28/22 05/11/25 History K-lycop 400 mcg-20 mcg-370 mcg tablet (Men's 50 Plus Multivitamin) ibuprofen 800 mg tablet 800 mg PO TID PRN Pain #90 tabs 05/13/24 05/05/25 Rx clonazepam 1 mg tablet 1 mg PO QHS PRN tremors #90 ea 03/30/25 05/05/25 Rx propranolol 10 mg tablet 10 mg PO TID #90 tabs 03/30/25 05/11/25 Rx escitalopram oxalate 10 mg tablet 10 mg PO DAILY #90 tabs 03/31/25 05/11/25 Rx (Lexapro) primidone 50 mg tablet (Mysoline) 50 mg PO QHS #60 tabs 03/31/25 05/11/25 Rx mirtazapine 15 mg tablet (Remeron) 15 mg PO QHS #30 tabs 05/04/25 05/11/25 Rx Allergies Allergy/AdvReac Type Severity Reaction Status Date / Time sertraline AdvReac Intermediate Anxiety Verified 05/11/25 09:46 Vital Signs Vital Signs - 24 hr 05/11/25 09:40 Temperature 97.6 F Pulse Rate 68 Respiratory Rate 18 Blood Pressure 126/71 Pulse Oximetry 100 Oxygen Delivery Room Air Exam Const: General: comfortable and no acute distress HENMT: Face/Nose/Sinus: Normal nares present Eyes: General: appearance normal, both eyes and all related structures Neck: Neck: no JVD Resp: Auscultation: clear to auscultation bilaterally Cardio: Rate: regular rate Rhythm: regular rhythm GI: Inspection: non-distended GI Palp: Yes Soft to palpation Skin: General skin exam: normal color Neuro: Speech: normal speech Extrem: General: normal to inspection Psych: Mental Status: mental status grossly normal Assessment and Plan Assessment and plan (1) Weight loss: Code(s): R63.4 - Abnormal weight loss Status: Acute Assessment and Plan: egd and colonoscopy (2) Constipation, unspecified: Code(s): K59.00 - Constipation, unspecified Status: Resolved
[2025-05-11] MEDS: LACTATED RINGERS 1,000 ML 150 ML IV CONT (10:13)
--- NOTE | 2025-05-11 10:48 | SUR.OPER ---
EGD ended approx 1044 colonoscopy started 104
--- NOTE | 2025-05-11 10:52 | S_PTH ---
PATIENT: Kaye Galloway LOC: [facility]#:[id number] AGE/SX: 59/M ROOM: RE05/11/[address]: Nando Parra MD : 1965 BED: DIS: 05/11/2025 SPEC #: [id number] RECD: 05/11/25 11:56 STATUS: MAGGY REJoselin #: [id number] UGO: 05/11/25 10:[address]: Nando Parra DEPT: [facility] Surgical RECD BY: Betty Banuelos ENTERED: 05/11/25 11:56 SP TYPE: Surgical OTHR DR: Ban Daniel MD Tissues: A - Small Bowel Bx B - Gastric Biopsy Procedures: Hematoxylin and Eosin Stain Gross and Microscopic Level 4
[2025-05-11 11:01] VITALS: BP 80/48; PULSE 54; RESP 15; O2SAT 100
[2025-05-11 11:11] VITALS: BP 90/53; PULSE 51; RESP 15; O2SAT 100
[2025-05-11 11:21] VITALS: BP 103/55; PULSE 57; RESP 15; O2SAT 100
== END 2025-05-11 11:40 | disposition home or self-care (01) ==
PROVIDERS: PCP Family Medicine; Referring Provider Nurse Practitioner Family; Visit Provider Internal Medicine Gastroenterology
PROC: 0DJ08ZZ Inspection of Upper Intestinal Tract, Via Natural or Artificial Opening Endoscopic (ICD-10-PCS; CPT 45378; principal; 2025-05-11 10:30)
DX: K64.8 Other hemorrhoids (principal); K21.9 Gastro-esophageal reflux disease without esophagitis; G47.9 Sleep disorder, unspecified; G31.84 Mild cognitive impairment of uncertain or unknown etiology; F07.81 Postconcussional syndrome; R51.9 Headache, unspecified; M19.079 Primary osteoarthritis, unspecified ankle and foot; Z79.1 Long term (current) use of non-steroidal anti-inflammatories (NSAID); Z98.890 Other specified postprocedural states; Z80.42 Family history of malignant neoplasm of prostate; Z82.49 Family history of ischemic heart disease and other diseases of the circulatory system
CPT/HCPCS: 43239; 45378; 88305; J2003; J2704; J7120